=== PATIENT | male | born 1955 | race Caucasian/White ===

== ENCOUNTER → 2017-06-27 10:00 | Outpatient (CLI) | payer OTHER, SELFPAY ==
[2017-06-27 12:43] LABS: Vitamin D,25 Hydroxy 36.7 ng/mL (29.95-100.01)
[2017-06-27 13:07] LABS: Anion Gap 5 (5-15); BUN 24 mg/dL (7-18); BUN/Creat Ratio 23.1 RATIO (10-20); Calcium,Total 9.2 mg/dL (8.5-10.1); Chloride 108 mmol/L (98-107); Cholesterol 189 mg/dL (200); Creatinine, Serum 1.04 mg/dL (0.70-1.30); EST Glomerular Filtration Rate 76 mL/min (>60); Est Glom Filt Rate - Afr Amer 92 mL/min (>60); Glucose 94 mg/dL (74-106); High Density Lipoprotein 47 mg/dL; PSA,Total - Annual Screen 0.68 ng/mL (0.00-4.00); Potassium 4.4 mmol/L (3.5-5.1); Sodium Level 142 mmol/L (136-145); Thyroid Stim Hormone (TSH) 1.35 uIU/mL (0.358-3.74); Triglycerides 116 mg/dL; Very Low Density Lipoprotein 23 mg/dL (5-40)
== END ==
PROVIDERS: Family Provider Family Medicine; PCP Family Medicine; Visit Provider Family Medicine
DX: Z00.00 Encounter for general adult medical examination without abnormal findings (principal); Z12.5 Encounter for screening for malignant neoplasm of prostate
CPT/HCPCS: 36415; 80048; 80061; 82306; 84153; 84443; G0103

== ENCOUNTER → 2017-09-14 09:40 | Outpatient (CLI) | payer OTHER, SELFPAY ==
--- NOTE | 2017-09-14 09:48 | EKG12_ITS ---
Test Reason : PERSISTENT A-FIB Blood Pressure : / mmHG Vent. Rate : 083 BPM Atrial Rate : 214 BPM P-R Int : 000 ms QRS Dur : 102 ms QT Int : 390 ms P-R-T Axes : 000 021 035 degrees QTc Int : 458 ms Atrial fibrillation Abnormal ECG Confirmed by VANDANA ANTOINE MD ([id number]), editor continuity and script TANYA RAHMAN ([id number] on 09/17/2017 3:29:05 PM Referred By: RONNIE MONTERO Confirmed By:VANDANA ANTOINE MD
== END ==
PROVIDERS: Family Provider Family Medicine; PCP Family Medicine
DX: I48.1 Persistent atrial fibrillation (principal)
CPT/HCPCS: 93005

== ENCOUNTER → 2019-03-21 08:34 | Outpatient (CLI) | payer MEDICARE, OTHER, SELFPAY ==
[2016-10-10 21:18] VITALS: BMI 27.1
[2019-03-21 11:23] LABS: Anion Gap 4 (5-15); BUN 26 mg/dL (7-18); BUN/Creat Ratio 25.5 RATIO (10-20); Calcium,Total 9.4 mg/dL (8.5-10.1); Chloride 110 mmol/L (98-107); Cholesterol 190 mg/dL (200); Creatinine, Serum 1.02 mg/dL (0.70-1.30); EST Glomerular Filtration Rate 78 mL/min (>60); Est Glom Filt Rate - Afr Amer 94 mL/min (>60); Glucose 95 mg/dL (74-106); High Density Lipoprotein 45 mg/dL; Potassium 4.4 mmol/L (3.5-5.1); Sodium Level 140 mmol/L (136-145); Triglycerides 102 mg/dL; Very Low Density Lipoprotein 20 mg/dL (5-40)
== END ==
PROVIDERS: Family Provider Family Medicine; PCP Family Medicine; Referring Provider Family Medicine; Visit Provider Family Medicine
DX: Z00.00 Encounter for general adult medical examination without abnormal findings (principal); I48.91 Unspecified atrial fibrillation; Z12.5 Encounter for screening for malignant neoplasm of prostate
CPT/HCPCS: 36415; 80048; 80061; 84153; G0103

== ENCOUNTER → 2023-09-03 | Outpatient (CLI) | payer MEDICARE, OTHER, SELFPAY ==
--- NOTE | 2023-09-03 16:41 | CT_ITS ---
STUDY: LOW DOSE CT LUNG CANCER SCREENING REASON FOR EXAM: Male, 68 years old. smoking history. Former smoker. Patient smoked 1 pack per day for 26 years. RADIATION DOSAGE (If Supplied By Facility): CTDIvol = ( 3.02 ) mGy, DLP = ( 114.38 ) mGycm TECHNIQUE: No contrast was administered. Low dose technique was utilized (average mAS-38 and kVp 120). 1.25 mm axial source images with a slice interval of 1.25-mm were reconstructed in lung windows. 2.5 mm axial source images with a slice interval of 2.5-mm were reconstructed in lung windows. 5.0 mm axial source images with a slice interval of 5.0-mm were reconstructed in soft tissue windows. COMPARISON: None. NODULES: No suspicious nodules are seen. Emphysema: Increased markings are seen in the peripheral lateral aspect of the left lower lobe suggestive of a scarring. Minimal scarring in the medial aspect of the right middle lobe and lingular segment of the left upper lobe. Endobronchial lesion: Unremarkable Aorta: Mild atherosclerotic plaque formation of the aortic arch. CORONARY ARTERIES: Coronary artery calcification is seen. Heart: Unremarkable Pulmonary artery: Unremarkable Mediastinal nodes: Small mediastinal lymph nodes. Other chest and abdominal findings: CT/Low Dose CT Lung Screening IMPRESSION: Lung-RADS category 2 - Continue annual screening with LDCT in 12 months. IMPORTANT NOTES FOR USE: ACR Lung-RADS Version 1.1 Assessment Categories Release Date: 2018 Category: Coded 0-4 bases on nodule(s) with highest degree of suspicion. Negative screen is defined as categories 1 and 2; a positive screen is defined as categories 3 and 4. Category 3 and 4A nodules that are unchanged on interval CT should be coded as category 2, and individuals returned to screening in 12 months. Category 4X: Category 3 or 4 nodules with additional imaging findings that increase the suspicion of lung cancer, such as spiculation, GGN that doubles in size in 1 year, enlarged lymph notes, etc. Category Modifiers: S (significant finding unrelated to lung cancer) Electronically Signed: Shon Liang MD at 12:55 EDT ,
== END | disposition home or self-care (01) ==
LOC: CT 16:37
PROVIDERS: PCP Family Medicine; Referring Provider Family Medicine; Visit Provider Family Medicine
DX: Z12.2 Encounter for screening for malignant neoplasm of respiratory organs (principal); Z87.891 Personal history of nicotine dependence
CPT/HCPCS: 71271

== ENCOUNTER → 2024-10-14 | Outpatient (CLI) | payer MEDICARE, OTHER, SELFPAY ==
--- OUTSIDE RECORDS SUMMARY | 2024-10-14 08:44 | XMS RPT_ITS | CCD ---
Author Organization [facility] Care Team Providers Care Orthotic Practitioner Name Role Phone David Woods MD Primary Care Provider [phone] No, Referral Unavailable Unavailable Fan MAYNARD, Dewayne Unavailable DAVID MORTON Attending Unavailable DAVID WOODS Primary Care Unavailable David Woods MD Primary Care Provider No, Referral Unavailable Unavailable Fan MAYNARD, Dewayne Unavailable Dileep Abernathy MD Unavailable Dileep Abernathy MD Unavailable David Woods MD Primary Care Provider [phone] David Woods Referring Unavailable David Woods Attending Unavailable David Woods Primary Care Unavailable David Woods MD Primary Care Provider [phone] DAVID WOODS Primary Care Unavailable DILEEP ABERNATHY Referring Unavailable DAVID WOODS Primary Care Unavailable SELINA PARRISH Attending Unavailable DAVID WOODS Primary Care Unavailable NO BENJAMIN Attending Unavailable DAVID WOODS Primary Care Unavailable DAVID WOODS Primary Care Unavailable LARRY BA Referring Unavailable DAVID WOODS Primary Care Unavailable LARRY BA Attending Unavailable DAVID WOODS Primary Care Unavailable DILEEP ABERNATHY Attending Unavailable DILEEP ABERNATHY Referring Unavailable Medications Current Medications Medication Drug Class(es) Dates Sig (Normalized) Sig (Original) cephalexin 500 mg oral capsule (3 sources) Cephalosporin Antibacterial Start: 09-06-2024 End: 09-11-2024 take 1 capsule by mouth twice daily cephALEXin (KEFLEX) 500 mg capsule Take 1 capsule by mouth two times a day for 5 days. 10 capsule 09/06/2024 09/11/2024 Active fluticasone propionate 0.05 mg/actuat metered dose nasal spray (20 sources) Corticosteroid Start: 08-31-2021 take 1-2 spray(s) nasal route once daily fluticasone (FLONASE) 50 mcg/actuation nasal spray USE 1 TO 2 SPRAY(S) IN EACH NOSTRIL ONCE DAILY 08/31/2021 Active Comment on above: USE 1 TO 2 SPRAY(S) IN EACH NOSTRIL ONCE DAILY multivit-mins no.63/iron/folic (M-VIT ORAL) (20 sources) multivit-mins no.63/iron/folic (M-VIT ORAL) Take by mouth. Active multivit-mins no .63/iron/folic (M-VIT ORAL) Take by mouth. 0 Active Comment on above: Take by mouth. polyethylene glycol 3350 62645 mg powder for oral solution (1 source) Osmotic Laxative Start: 3 End: 3 polyethylene glycol 3350 17 gram/dose powder Take 17 g by mouth once daily as needed for constipation for up to 7 days. Mix in 8 ounces of water or juice. 119 g 0 01/26/2023 02/02/2023 Active Comment on above: Take 17 g by mouth o nce daily as needed for constipation for up to 7 days. Mix in 8 ounces of water or juice. rivaroxaban 20 mg oral tablet (20 sources) Factor Xa Inhibitor Start: 4 take 1 tablet by mouth once daily at dinner rivaroxaban (XARELTO) 20 mg tablet Indications: Paroxysmal atrial fibrillation (HCC) Take 1 tablet by mouth daily with dinner. 90 tablet 3 09/16/2023 Active Start: 05-23-2021 End: 09-14-2023 take 1 tablet by mouth once daily at dinner rivaroxaban (XARELTO) 20 mg tablet Indications: Paroxysmal atrial fibrillation (HCC) Take 1 tablet by mouth daily with dinner. 90 tablet 3 09/06/2022 09/14/2023 Discontinued Comment on above: Take 1 tablet by nette th daily with dinner. Completed/Discontinued Medications Medication Drug Class(es) Dates Sig (Normalized) Sig (Original) ascorbic acid 1000 mg oral tablet (20 sources) Vitamin C Start: 04-28-2016 End: 10-26-2023 Ascorbic Acid 1,000 mg tablet Take by mouth. 0 04/28/2016 10/26/2023 Discontinued (Course of therapy completed) Comment on above: Take by mouth. flecainide acetate 150 mg oral tablet (20 sources) Antiarrhythmic Start: 05-23-2021 End: 05-11-2023 take 1 tablet by mouth every twelve hours flecainide (TAMBOCOR) 150 mg tablet Indications: Atrial fibrillation, unspecified type (HCC) Take 1 tablet by mouth q 12 HR. 180 tablet 3 06/16/2022 05/11/2023 Discontinued (Course of therapy completed) Comment on above: Take 1 tablet by nette th q 12 HR. metoprolol tartrate 25 mg oral tablet (20 sources) beta-Adrenergic Leesa Start: 10-26-2022 End: 10-26-2023 take 0.5 tablet by mouth once daily metoprolol tartrate, short acting, (LOPRESSOR) 25 mg tablet Indications: Paroxysmal atrial fibrillation (HCC) Take 0.5 tablets by mouth once daily. 45 tablet 3 10/26/2022 10/26/2023 Discontinued Start: 02-20-2022 End: 10-25-2022 take 1 tablet by mouth twice daily metoprolol tartrate, short acting, (LOPRESSOR) 25 mg tablet Indications: Paroxysmal atrial fibrillation (HCC) Take 1 tablet by mouth twice daily. 45 tablet 3 02/20/2022 Active Start: 05-23-2021 End: 02-20-2022 take 1 tablet by mouth once daily metoprolol tartrate, short acting, (LOPRESSOR) 25 mg tablet Indications: Paroxysmal atrial fibrillation (HCC) Take 1/2 (one-half) tablet by mouth once daily 45 tablet 3 05/23/2021 02/20/2022 Discontinued Comment on above: Take 1/2 (one-half) tablet by mouth once daily Take 1 tablet by nette th twice daily. Take 25 mg by mouth twice daily. Take 0.5 tablets by mouth once daily. OTC NUTRITIONAL SUPPLEMENT (10 sources) End: 06-05-2022 OTC NUTRITIONAL SUPPLEMENT collagen peptides 0 06/05/2022 Discontinued (Course of therapy completed) OTC NUTRITIONAL SUPPLEMENT collagen peptides 0 Active Comment on above: collagen peptides pantoprazole 40 mg delayed release oral tablet (20 sources) Proton Pump Inhibitor Start: 3 End: 5 take 1 tablet by mouth twice daily before mealtime, then take 4 tablets by mouth in the evening pantoprazole DR (PROTONIX) 40 mg tablet Take 1 tablet by mouth two times a day before meals at 6 am and 4 pm. 180 tablet 04/27/2023 04/30/2024 Discontinued (Dosage adjustment) take 1 tablet by mouth once deepak y pantoprazole DR (PROTONIX) 20 mg tablet Take 20 mg by mouth once daily. Active Comment on above: Take 1 tablet by nette th two times a day before meals at 6 am and 4 pm. perflutren lipid microspheres 1.3 mL in NaCl (PF) 0.9% 10 mL injection (DEFINITY) (11 sources) Start: 03-28-2021 End: 06-05-2022 perflutren lipid microspheres 1.3 mL in NaCl (PF) 0.9% 10 mL injection (DEFINITY) Start: 03-28-2021 End: 06-27-2022 perflutren lipid microsphere s 1.3 mL in NaCl (PF) 0.9% 10 mL injection (DEFINITY) 125 ml sodium chloride 9 mg/ ml prefilled syringe (11 sources) Start: 03-28-2021 End: 06-27-2022 sodium chloride 0.9 % (flush ) 10 mL (BD POSIFLUSH) Problems Active Problems Problem Classification Problem Date Documented Da te Episodic/Chronic Abdominal hernia (1 source) Bilateral inguinal hernia, without obstruction or gangrene, not specified as recurrent; Translations: [Bilateral inguinal hernia without obstruction or gangrene, recurrence not specified] Onset: 01-26-2023 Episodic Garcia (2 sources) Epidermal burn of left forearm; Translations: [Burn of first degree of left forearm, initial encounter] Onset: 10-12-2024 10-12-2024 Episodic Cardiac dysrhythmias (20 sources) Atrial fibrillation; Translations: [Unspecified atrial fibrillation] Onset: 01-01-2009 01-18-2010 Chronic Other gastrointestinal disorders (1 source) Constipation, unspecified; Translations: [Constipation, unspecified constipation type] Onset: 01-26-2023 Episodic Other injuries and conditions due to external causes (2 sources) Injury of right hand; Translations: [Unspecified injury of right wrist, hand and finger(s), initial encounter] 09-06-2024 Episodic Other injuries and conditions due to external causes (1 source) Unspecified injury of right wrist, hand and finger(s), initial encounter; Translations: [Injury of right hand, initial encounter] Onset: 09-06-2024 Episodic Other screening for suspected conditions (not mental disorders or infectious disease) (1 source) Encounter for screening for malignant neoplasm of respiratory organs; Translations: [Encounter for screening for malignant neoplasm of respiratory organs] Onset: 09-21-2023 Episodic Residual codes; unclassified (1 source) Pain; Translations: [Pain, unspecified] 02-20-2023 Episodic Unclassified (20 sources) SUMMARY Onset: 03-28-2010 Past or Other Problems Problem Classification Problem Date Documented Da te Episodic/Chronic Acquired foot deformities (20 sources) Acquired hallux limitus of right great toe; Translations: [Other deformities of toe(s) (acquired), right foot] Onset: 03-29-2023 02-20-2023 Episodic Other aftercare (20 sources) Long-term current use of anticoagulant; Translations: [extermination supervisor (current) use of anticoagulants] Onset: 03-28-2010 05-11-2023 Episodic Other aftercare (2 sources) extermination supervisor (current) use of anticoagulants; Translations: [Chronic anticoagulation] Onset: 03-07-2021 Episodic Other and unspecified benign neoplasm (20 sources) Neuroma; Translations: [Benign neoplasm of peripheral nerves and autonomic nervous system, unspecified] Onset: 03-29-2023 02-20-2023 Episodic Other connective tissue disease (20 sources) Diastasis of muscle; Translations: [Separation of muscle (nontraumatic), unspecified site] Onset: 01-25-2008 01-25-2008 Episodic Other non-traumatic joint disorders (20 sources) Disorder of joint of foot; Translations: [Other specified joint disorders, right ankle and foot] Onset: 03-29-2023 02-20-2023 Episodic Unclassified (2 sources) Injury of right hand 09-06-2024 Results Test Name Value Interpretation Reference Range Facility [facility] 10-12-2024 CNOV Office Visit (WOUCA) -------- TONYA ROOT ([id number]) 1955 M Date Time Provider Department 10/12/24 1:30 PM NO BENJAMIN During your visit today, we recorded the following information about you: Temperature Pulse Respiration Blood pressure 97.2 degrees 62/minute 16/minute 110/72 Weight 79.5 kg No Benjamin, PORTAL DEVELOPER.SUPPLY REQUIREMENTS OFFICER 10/12/2024 1:49 PM Signed Subjective Tonya Root is a 69 year old male. HPI Patient presents today for evaluation of a burn to the palmar aspect of his left forearm which happened today while working on his vehicle. He notes that some sort of hot fluid came out of the cart landing on his forearm creating the burn. He otherwise denies any other injuries or health concerns. Review of Systems As above Objective BP 110/72 Pulse 62 Temp 36.2 ?C (97.2 ?F) Resp 16 Wt 79.5 kg (175 lb 4.3 oz) SpO2 97% BMI 25.88 kg/m? Physical Exam Vitals and nursing note reviewed. Constitutional: General: He is not in acute distress. Appearance: Normal appearance. He is not ill-appearing. HENT: Head: Normocephalic. Pulmonary: Effort: Pulmonary effort is normal. Musculoskeletal: General: Normal range of motion. Skin: General: Skin is warm. Comments: Palmar aspect left forearm extending from wrist to just below the antecubital fossa and approximately one half of the circumference of the forearm there is an erythematous area consistent with a superficial burn. No blistering noted. No streaking noted Neurological: General: No focal deficit present. Mental Status: He is alert and oriented to person, place, and time. Psychiatric: Mood and Affect: Mood normal. Behavior: Behavior normal. ASSESSMENT/PLAN: 1. Superficial burn of left forearm, initial encounter - ICD9: 943.11, ICD10: T22.112A - At this point there are no blisters and patient's presentation is consistent with a superficial burn. Burn is not circumferential. Patient's tetanus shot is up-to-date. Discussed with him basic burn care including cool compresses and using antibiotic ointment if at any point you were to develop any blistering. Recommended follow-up with PCP for continued evaluation and monitoring. Due to patient taking Eliquis he will use Tylenol as needed for pain. No Benjamin APRN.MOE Allergies As of Date: 10/12/2024 (No Known Allergies) Date Reviewed: 10/12/2024 Reviewed by: No Benjamin APRN.SUPPLY REQUIREMENTS OFFICER - Fully Assessed Reason for Visit: Burn [1748] Cmt: left arm, working on car, hot water x today Primary Visit Diagnosis:Superficial burn of left forearm, initial encounter [T22.112A] Prescriptions as of 10/12/2024 - pantoprazole DR (PROTONIX) 20 mg tablet Take 20 mg by mouth once daily. - rivaroxaban (XARELTO) 20 mg tablet Take 1 tablet by mouth daily with dinner. - fluticasone (FLONASE) 50 mcg/actuation nasal spray USE 1 TO 2 SPRAY(S) IN EACH NOSTRIL ONCE DAILY - multivit-mins no.63/iron/folic (M-VIT ORAL) Take by mouth. 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] 03/29/2023 Encounter Status:Closed by NO BENJAMIN on 10/12/24 [facility] CNOVon 09-06-2024 CNOV Office Visit (UCWSTR ) -------- TONYA ROOT ([id number]) 1955 M Date Time Provider Department 09/06/24 8:15 AM LARRY BA UCWSTR During your visit today, we recorded the following information about you: Temperature Pulse Respiration Blood pressure 97.7 degrees 60/minute 19/minute 122/64 Weight 78.5 kg Larry Ba APRN.SUPPLY REQUIREMENTS OFFICER 09/08/2024 7:09 AM Signed Subjective HPI Nontoxic-appearing 69-year-old male presents urgent care accompanied by significant other. Chief complaint left thumb injury. Patient states slammed finger in car door yesterday. Is having pain with this. Does have some bleeding under nail. Is on Eliquis due to A-fib. Had ablation in 2022. Has been in rhythm since. No numbness no tingling. No decrease sensation. No decreased strength. Has taken acetaminophen. This has helped with discomfort. No other concerns. Past medical history prescription medications allergies reviewed. [id number]. No surgeries fractures previously .Patient presents with: Trauma: Slammed right hand thumb in car door x 1 day PAST MEDICAL HISTORY Diagnosis Date Anxiety state, unspecified Atrial fibrillation (HCC) 01/01/2009 Atrial flutter (HCC) Diverticulosis of colon (without mention of hemorrhage) Osteoarthrosis, unspecified whether generalized or localized, lower leg Other forms of migraine, without mention of intractable migraine without mention of status migrainosus Personal history of colonic polyps Shingles PAST SURGICAL HISTORY Procedure Laterality Date AFIB PVI W/COMPL EP STUDY 2010 CARDIOVERSION multiple, last 04/09/18 PAST SURGICAL HISTORY OF 2007 Aflutter RFA CTI line PAST SURGICAL HISTORY OF 03/2007 foot surgery PT [facility] 01/23/2023 ablation ALLERGIES Patient has no known allergies. MEDICATIONS pantoprazole DR (PROTONIX) 20 mg tablet Take 20 mg by mouth once daily. rivaroxaban (XARELTO) 20 mg tablet Take 1 tablet by mouth daily with dinner. fluticasone (FLONASE) 50 mcg/actuation nasal spray USE 1 TO 2 SPRAY(S) IN EACH NOSTRIL ONCE DAILY multivit-mins no.63/iron/folic (M-VIT ORAL) Take by mouth. FAMILY HISTORY Problem Relation Age of Onset Stroke Mother d. age 70 Emphysema Father d age 68 None Sister Heart Brother d. age 46; SCD other (Other) Brother MS Blood Disease Son d. age 4; Leukemia Social History Tobacco Use Smoking status: Former Current packs/day: 0.00 Types: Cigarettes Quit date: 02/12/1998 Years since quittin.5 Smokeless tobacco: Never Tobacco comments: Quit @ 10 years ago Vaping Use Vaping status: Never Used Substance Use Topics Alcohol use: No Drug use: No BP 122/64 Pulse 60 Temp 36.5 ?C (97.7 ?F) Resp 19 Wt 78.5 kg (173 lb 1 oz) SpO2 97% BMI 25.56 kg/m? Review of Systems Constitutional: Negative for chills, fever and malaise/fatigue. Musculoskeletal: Positive for joint pain. Negative for back pain, falls, myalgias and neck pain. Neurological: Negative for dizziness, loss of consciousness, weakness and headaches. Objective Physical Exam Constitutional: General: He is not in acute distress. Appearance: He is not toxic-appearing. HENT: Head: Normocephalic. Nose: Nose normal. Eyes: Pupils: Pupils are equal, round, and reactive to light. Cardiovascular: Rate and Rhythm: Normal rate. Pulmonary: Effort: Pulmonary effort is normal. No respiratory distress. Musculoskeletal: Cervical back: Normal range of motion. Comments: Pain with palpation to distal aspect of thumb right hand. Ecchymosis noted to palmar aspect as well as hematoma neck noted dorsal aspect. Neurovascular intact. Full strength. Skin: General: Skin is warm and dry. Neurological: General: No focal deficit present. Mental Status: He is alert. ASSESSMENT/PLAN: 1. Injury of right hand, initial encounter - ICD9: 959.4, ICD10: S69.91XA - XR DIGIT GENERAL 3V FRONTAL/LAT/OBL RIGHT IMPRESSION: Negative for acute fracture or malalignment of the right thumb. No acute findings on x-ray. Treat as contusion. Patient was educated on supportive therapies. Patient will follow up with primary care provider as needed. Patient was instructed to immediately proceed to emergency room for any new, worsening, or symptoms lasting longer than anticipated. The patient's clinical presentation is otherwise unremarkable at this time. Based on exam and clinical finding, the patient is stable for discharge. Plan of care was discussed with patient. Patient verbalizes understanding and agrees to plan of care. This note was generated using [employer] software. It may contain errors in wording, punctuation, or spelling. Larry aB APRN.SUPPLY REQUIREMENTS OFFICER Allergies As of Date: 09/06/2024 (No Known Allergies) Date Reviewed: 09/06/2024 Reviewed by: Larry Ba APRN.SUPPLY REQUIREMENTS OFFICER - Fully Assessed Reason fo (more content not included)... Normal [facility] XR DIGIT 3V FRONTAL/LAT/OBL RTon 09-06-2024 XR DIGIT 3V FRONTAL/LAT/OBL RT * * *Final Report* * * DATE OF EXAM: Sep 06 2024 8:33AM WOX [id number] - XR DIGIT 3V FRONTAL/LAT/OBL RT / PROCEDURE REASON: Injury of right hand, initial encounter * * * * Physician Interpretation * * * * EXAM: XR DIGIT 3V FRONTAL/LAT/OBL RT PATIENT HISTORY: Injury of right thumb TECHNIQUE: Frontal, lateral, and oblique radiograph of the right thumb. COMPARISON: No relevant prior available FINDINGS: No acute fracture or dislocation. Severe osteoarthrosis of the first carpometacarpal joint. No significant soft tissue edema, defect, radiopaque foreign body. IMPRESSION: Negative for acute fracture or malalignment of the right thumb. Hook Tender: ROSENDO Transcribe Date/Time: Sep 06 2024 9:17A Dictated by : KITA BYERS MD This examination was interpreted and the report reviewed and electronically signed by: KITA BYERS MD on Sep 06 2024 9:19AM EST [id number] Normal [facility] XR Finger - right AP and Lat eral and obliqueon 09-06-2024 IMPRESSION: Negative for acute fracture or malalignment of the right thumb. Hook Tender: ROSENDO Transcribe Date/Time: Sep 06 2024 9:17A Dictated by : KITA BYERS MD This examination was interpreted and the report reviewed and electronically signed by: KITA BYERS MD on Sep 06 2024 9:19AM EST DIVISION OF RADIOLOGY * * *Final Report* * * DATE OF EXAM: Sep 06 2024 8:33AM WOX [id number] - XR DIGIT 3V FRONTAL/LAT/OBL RT / PROCEDURE REASON: Injury of right hand, initial encounter * * * * Physician Interpretation * * * * EXAM: XR DIGIT 3V FRONTAL/LAT/OBL RT PATIENT HISTORY: Injury of right thumb TECHNIQUE: Frontal, lateral, and oblique radiograph of the right thumb. COMPARISON: No relevant prior available FINDINGS: No acute fracture or dislocation. Severe osteoarthrosis of the first carpometacarpal joint. No significant soft tissue edema, defect, radiopaque foreign body. DIVISION OF RADIOLOGY Provider, [facility] - 09/06/2024 * * *Final Report* * * DATE OF EXAM: Sep 06 2024 8:33AM WOX [id number] - XR DIGIT 3V FRONTAL/LAT/OBL RT / PROCEDURE REASON: Injury of right hand, initial encounter * * * * Physician Interpretation * * * * EXAM: XR DIGIT 3V FRONTAL/LAT/OBL RT PATIENT HISTORY: Injury of right thumb TECHNIQUE: Frontal, lateral, and oblique radiograph of the right thumb. COMPARISON: No relevant prior available FINDINGS: No acute fracture or dislocation. Severe osteoarthrosis of the first carpometacarpal joint. No significant soft tissue edema, defect, radiopaque foreign body. IMPRESSION IMPRESSION: Negative for acute fracture or malalignment of the right thumb. Hook Tender: PSCB Transcribe Date/Time: Sep 06 2024 9:17A Dictated by : KITA BYERS MD This examination was interpreted and the report reviewed and electronically signed by: KITA BYERS MD on Sep 06 2024 9:19AM EST [facility] Study observation (narrative) [facility] XR Finger - right AP and Lat eral and obliqueOrdered By: [facility] Provider on 09-06-2024 [facility] 06-03-2024 CNPN Telephone (CARDMN) -------- TONYA ROOT ([id number]) 1955 M Date Time Provider Department 06/03/24 DILEEP ABERNATHY During your visit today, we recorded the following information about you: Louisa Marshall 06/03/2024 12:23 PM Signed Outside [id number] I have a copy @ my desk Louisa Marshall Allergies As of Date: 06/03/2024 (No Known Allergies) Date Reviewed: 05/11/2023 Reviewed by: Rosa Isela Martin APRN.SUPPLY REQUIREMENTS OFFICER - Fully Assessed Reason for Visit: Received Outside Medical Records [3576] Cmt: Redetermination Of Denial- Xarelto Prescriptions as of 06/03/2024 - pantoprazole DR (PROTONIX) 20 mg tablet Take 20 mg by mouth once daily. - rivaroxaban (XARELTO) 20 mg tablet Take 1 tablet by mouth daily with dinner. - fluticasone (FLONASE) 50 mcg/actuation nasal spray USE 1 TO 2 SPRAY(S) IN EACH NOSTRIL ONCE DAILY - multivit-mins no.63/iron/folic (M-VIT ORAL) Take by mouth. 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 Allergies As of Date: 05/30/2024 (No Known Allergies) Date Reviewed: 05/11/2023 Reviewed by: Rosa Isela Martin APRN.SUPPLY REQUIREMENTS OFFICER - Fully Assessed Reason for Visit: Prior Authorization _ Request for Additional Information [Other] Cmt: Xarelto Prescriptions as of 07/09/2024 - pantoprazole DR (PROTONIX) 20 mg tablet Take 20 mg by mouth once daily. - rivaroxaban (XARELTO) 20 mg tablet Take 1 tablet by mouth daily with dinner. - fluticasone (FLONASE) 50 mcg/actuation nasal spray USE 1 TO 2 SPRAY(S) IN EACH NOSTRIL ONCE DAILY - multivit-mins no.63/iron/folic (M-VIT ORAL) Take by mouth. 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] 03/29/2023 Encounter Status:Closed by ASHLEY WEAVER on 07/09/24 [facility] CNPCiera 05-21-2024 MOEN Telephone (TALA) -------- TONYA ROOT ([id number]) 1955 Date Time Provider Department 05/21/24 DILEEP ABERNATHY During your visit today, we recorded the following information about you: Louisa Marshall 05/21/2024 8:11 AM Signed Outside ep-8-pgs I have a copy @ my desk John Ocasioavia 06/02/2024 11:09 AM Signed Form completed, faxed AND scanned into outside ep Louisa Marshall Allergies As of Date: 05/21/2024 (No Known Allergies) Date Reviewed: 05/11/2023 Reviewed by: Rosa Isela Martin APRN.SUPPLY REQUIREMENTS OFFICER - Fully Assessed Reason for Visit: Received Outside Medical Records [3576] Cmt: Damaris Prior Auth Prescriptions as of 06/02/2024 - pantoprazole DR (PROTONIX) 20 mg tablet Take 20 mg by mouth once daily. - rivaroxaban (XARELTO) 20 mg tablet Take 1 tablet by mouth daily with dinner. - fluticasone (FLONASE) 50 mcg/actuation nasal spray USE 1 TO 2 SPRAY(S) IN EACH NOSTRIL ONCE DAILY - multivit-mins no.63/iron/folic (M-VIT ORAL) Take by mouth. 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] 03/29/2023 Encounter Status:Closed by LOUISA MARSHALL on 05/21/24 [facility] CNOVon 04-30-2024 CNOV Office Visit (CARDMN ) -------- TONYA ROOT ([id number]) 1955 M Date Time Provider Department 04/30/24 9:15 AM DILEEP ABERNATHY During your visit today, we recorded the following information about you: Blood pressure Weight Height 118/68 77.6 kg 1.753 m Dileep Aberntahy MD 05/01/2024 11:30 AM Signed [facility] [place] [facility]ta Ingram Department of Cardiovascular Medicine SECTION OF CARDIAC PACING and ELECTROPHYSIOLOGY OUTPATIENT VISIT DATE April 30, 2024 OUTPATIENT VISIT TYPE ESTABLISHED PRIMARY CARE PHYSICIAN: David Woods [address] [place] [address] NURSING INTAKE HISTORY: Mr. Root is a 69 year old male who presents today for a follow-up visit for atrial fibrillation. He has a past medical history of atrial fibrillation/flutter with a CTI ablation in 2007, pulmonary vein isolation in 2010, multiple DCCV. He was previously maintained on Flecainide and Metoprolol until 2020 when he developed AFL and required several cardioversions. He developed persistent AFL in associated with dyspnea and fatigue. He had a redo AF/AFL ablation 01/23/2023. His Flecainide was stopped in May 2023. He has done well since his last ablation without any known recurrence of his arrhythmia. He remains on Xarelto without any significant bleeding issues. Overall he is feeling well. CHADS2-Vasc Score Breakdown 1 Total Score 1 Age 65-74 years old PAST MEDICAL HISTORY Diagnosis Date Anxiety state, unspecified Atrial fibrillation (HCC) 01/01/2009 Atrial flutter (HCC) Diverticulosis of colon (without mention of hemorrhage) Osteoarthrosis, unspecified whether generalized or localized, lower leg Other forms of migraine, without mention of intractable migraine without mention of status migrainosus Personal history of colonic polyps Shingles PAST SURGICAL HISTORY Procedure Laterality Date AFIB PVI W/COMPL EP STUDY 2010 CARDIOVERSION multiple, last 04/09/18 PAST SURGICAL HISTORY OF 2007 Aflutter RFA CTI line PAST SURGICAL HISTORY OF 03/2007 foot surgery PT ED HEART AND VASCULAR 01/23/2023 ablation SOCIAL HISTORY Social History Tobacco Use Smoking status: Former Current packs/day: 0.00 Types: Cigarettes Quit date: 02/12/1998 Years since quittin.2 Smokeless tobacco: Never Tobacco comments: Quit @ 10 years ago Vaping Use Vaping status: Never Used Substance Use Topics Alcohol use: No Drug use: No FAMILY HISTORY Problem Relation Age of Onset Stroke Mother d. age 70 Emphysema Father d age 68 None Sister Heart Brother d. age 46; SCD other (Other) Brother MS Blood Disease Son d. age 4; Leukemia ALLERGIES: ALLERGIES No Known Allergies MEDICATIONS: pantoprazole DR (PROTONIX) 20 mg tablet Take 20 mg by mouth once daily. rivaroxaban (XARELTO) 20 mg tablet Take 1 tablet by mouth daily with dinner. fluticasone (FLONASE) 50 mcg/actuation nasal spray USE 1 TO 2 SPRAY(S) IN EACH NOSTRIL ONCE DAILY multivit-mins no.63/iron/folic (M-VIT ORAL) Take by mouth. Iwona Wise RN PHYSICAL EXAMINATION: BP 118/68 Ht 175.3 cm (5' 9) Wt 77.6 kg (171 lb) BMI 25.25 kg/m? CARDIOVASCULAR MEDICINE TESTING: EKG today: Echo: 05/11/2023 CONCLUSIONS: - Exam indication: Sustained atrial fibrillation - The left ventricle is normal in size. Left ventricular systolic function is normal. EF = 59 ? 5% (2D biplane) Normal left ventricular diastolic function. - The right ventricle is normal in size. Right ventricular systolic function is normal. - The right atrial cavity is dilated. - 1+ MR. - Patient had frequent ectopy throughout exam. - Exam was compared with the prior echocardiographic exam performed on 09/20/2021. Interval improvement in LVEF on direct comparison. EP STAFF NOTE: Please note: This note has been produced using speech recognition software and may contain errors related to that system including grammar, punctuation, spelling, gender and words and phrases that may be inappropriate Consultation initially requested by Dr. Chavira for an opinion regarding management of AF I have reviewed the above information and examined the patient and confirm the above with the following additions/modifications. Post DCC : PE: Vitals: BP 118/68 Ht 175.3 cm (5' 9) Wt 77.6 kg (171 lb) BMI 25.25 kg/m? General: Appears well nourished. In no acute distress. Lungs: Unlabored Heart: RRR Extremities: No peripheral edema bilaterally. PROBLEM LIST: patient of Dr. Chavira who was last seen on 11/04/2019 by Rea Hernandez CNP. HTN atrial fibrillation/flutter with a CTI ablation in 2007 pulmonary vein isolation in 2010, cardioversion on 11/04/2019. , . Patient has been on a rhythm controlling strategy with f (more content not included)... Normal [facility] ECG COMPLETEon 04-30-2024 ECG COMPLETE Ventricular Rate : 5 4 BPM Atrial Rate : 54 BPM P-R Interval : 160 ms QRS Duration : 78 ms Q-T Interval : 412 ms QTC Calculation(Bazett) : 390 ms Calculated P [place] : 39 degrees Calculated R [place] : 47 degrees Calculated T [place] : 44 degrees SINUS BRADYCARDIA OTHERWISE NORMAL ECG Confirmed by DAVE NY MD ([id number]) on 05/22/2024 8:23:38 PM NAME : TONYA ROOT PID : [id number] : 1955 Gender : Male Race : ORD : [id number] Procedure Date : Apr 30 2024 08:32:44 Edit Date : May 22 2024 20:23:41 Diagnosis: SINUS BRADYCARDIA OTHERWISE NORMAL ECG Confirmed by DAVE NY MD ([id number]) on 05/22/2024 8:23:38 PM Test Reason : Location : 314 : J14 J1-4 Overread By : DAVE NY MD Edited By : DAVE NY MD Referred By : DILEEP ABERNATHY Acquired by : TIFFANIE WESTFALL Normal [facility] CNOVon 10-26-2023 CNOV Office Visit (CARDMN ) -------- TONYA ROOT ([id number]) 1955 M Date Time Provider Department 10/26/23 1:00 PM SELINA PARRISH CARDMN During your visit today, we recorded the following information about you: Blood pressure Weight Height 136/78 78.8 kg 1.753 m Selina Parrish APRN.SUPPLY REQUIREMENTS OFFICER 10/26/2023 2:24 PM Signed [facility] [place] [facility] Ingram Department of Cardiovascular Medicine SECTION OF CARDIAC PACING and ELECTROPHYSIOLOGY OUTPATIENT VISIT DATE October 26, 2023 OUTPATIENT VISIT TYPE ESTABLISHED PRIMARY CARE PHYSICIAN: David Woods [address] [place] [address] [address] [place] [address] REFERRING PHYSICIAN: Dileep Abernathy [address] [facility] [address] CHIEF COMPLAINT: Atrial fibrillation HISTORY OF PRESENT ILLNESS: Mr. Root is a 68 year old male who presents today for follow-up visit for atrial fibrillation. He is an established patient of Dr. Abernathy last seen by Pardeep Martin on 05/11/2023. He has a past medical history of atrial fibrillation/flutter with a CTI ablation in 2007, pulmonary vein isolation in 2010, multiple DCCV. He was previously maintained on Flecainide and Metoprolol until 2020 when he developed AFL and required several cardioversions. He developed persistent AFL in associated with dyspnea and fatigue. He had a redo AF/AFL ablation with Dr. Abernathy on 01/23/2023. He continues to do well since his last visit without recurrences of atrial arrhythmias. He no longer taking Flecainide or Metoprolol. 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 He denies chest pain, shortness of breath, orthopnea, cough, edema, palpitations, PND, lightheadedness or syncope. PAST CARDIAC HISTORY: PAST MEDICAL HISTORY No date: Anxiety state, unspecified 01/01/2009: Atrial fibrillation (HCC) No date: Atrial flutter (HCC) No date: Diverticulosis of colon (without mention of hemorrhage) No date: Osteoarthrosis, unspecified whether generalized or localized, lower leg No date: Other forms of migraine, without mention of intractable migraine without mention of status migrainosus No date: Personal history of colonic polyps No date: ShinglesPAST SURGICAL HISTORY 2011: AFIB PVI W/COMPL EP STUDY No date: CARDIOVERSION Comment: multiple, last 04/09/182007: PAST SURGICAL HISTORY OF Comment: Aflutter RFA CTI line 03/2007: PAST SURGICAL HISTORY OF Comment: foot surgery 01/23/2023: PT ED HEART AND VASCULAR Comment: ablation SOCIAL HISTORY Social History Tobacco Use Smoking status: Former Types: Cigarettes Quit date: 02/12/1998 Years since quittin.7 Smokeless tobacco: Never Tobacco comments: Quit @ 10 years ago Vaping Use Vaping Use: Never used Substance Use Topics Alcohol use: No Drug use: No FAMILY HISTORY Problem Relation Age of Onset Stroke Mother d. age 70 Emphysema Father d age 68 None Sister Heart Brother d. age 46; SCD other (Other) Brother MS Blood Disease Son d. age 4; Leukemia ALLERGIES: ALLERGIES No Known Allergies MEDICATIONS: rivaroxaban (XARELTO) 20 mg tablet Take 1 tablet by mouth daily with dinner. pantoprazole DR (PROTONIX) 40 mg tablet Take 1 tablet by mouth two times a day before meals at 6 am and 4 pm. metoprolol tartrate, short acting, (LOPRESSOR) 25 mg tablet Take 0.5 tablets by mouth once daily. fluticasone (FLONASE) 50 mcg/actuation nasal spray USE 1 TO 2 SPRAY(S) IN EACH NOSTRIL ONCE DAILY Ascorbic Acid 1,000 mg tablet Take by mouth. multivit-mins no.63/iron/folic (M-VIT ORAL) Take by mouth. REVIEW OF SYSTEMS: GENERAL: No weight loss, malaise or fevers RESPIRATORY: See HPI CARDIOVASCULAR: See HPI GI: No nausea, vomiting, or diarrhea MUSCULOSKELETAL: Negative for joint pain or swelling, back pain or muscle pain SKIN: Negative for lesions, rash, and itching PSYCH: Calm and cooperative. PHYSICAL EXAMINATION: There were no vitals taken for this visit. General Appearance: Well developed, well nourished, and No acute distress Lungs: CTAB; No crackles, rales, rhonchi or wheezes; Respiratory effort: normal Heart: Regular rate AND rhythm; No murmur: S1, S2; Edema: None; PT/Radial pulses: 2+ Skin: Warm, Dry, and Moist Musculoskeletal: No deformities; Steady gait Neurologic/Psychiatric: Oriented to time, place, person AND situation;No gross focal neurologic deficits Groin: Device pocket: CARDIOVASCULAR MEDICINE TESTING: Last ECHO Result Conclusion ECHO Collected: 05/11/2023 2:08 PM (Final result) Impression: CONCLUSIONS: - Exam indication: Sustained atrial fibrillation - The left ventricle is normal in size. Left ventricular systolic function is normal. EF = 59 ? 5% (2D biplane) Normal left ventricular diastolic function. - The right ventricle is normal (more content not included)... Normal [facility] ECG COMPLETEon 10-26-2023 ECG COMPLETE Ventricular Rate : 4 5 BPM Atrial Rate : 45 BPM P-R Interval : 156 ms QRS Duration : 82 ms Q-T Interval : 454 ms QTC Calculation(Bazett) : 392 ms Calculated P [place] : 36 degrees Calculated R [place] : 46 degrees Calculated T [place] : 51 degrees SINUS BRADYCARDIA OTHERWISE NORMAL ECG Confirmed by DAVE YN MD ([id number]) on 11/30/2023 8:34:35 AM NAME : TONYA ROOT PID : [id number] : 1955 Gender : Male Race : ORD : [id number] Procedure Date : Oct 26 2023 12:18:28 Edit Date : Nov 30 2023 08:34:39 Diagnosis: SINUS BRADYCARDIA OTHERWISE NORMAL ECG Confirmed by DAVE NY MD ([id number]) on 11/30/2023 8:34:35 AM Test Reason : Location : 314 : J14 J1-4 Overread By : DAVE NY MD Edited By : DAVE NY MD Referred By : , Acquired by : RADHA PETERS [facility] Low Dose CT Lung Screeningon 09-03-[address] Lung Screening [facility] Imaging Services [address] [place] [id number] Lung Screening MR#: [id number] Acct: [id number] Name: TONYA ROOT Rep #: [id number] : 1955 M 68 From: Shon hardin MD PCP: Dr. David Woods MD Status: [facility] Study: Low Dose CT Lung Screening Date of Exam: 09/02 Exam# [id number] Ordering Dr: David Woods MD [id number] STUDY: LOW DOSE CT LUNG CANCER SCREENING REASON FOR EXAM: Male, 68 years old. smoking history. Former smoker. Patient smoked 1 pack per day for 26 years. RADIATION DOSAGE (If Supplied By Facility): CTDIvol = ( 3.02 ) mGy, DLP = ( 114.38 ) mGycm TECHNIQUE: No contrast was administered. Low dose technique was utilized (average mAS-38 and kVp 120). 1.25 mm axial source images with a slice interval of 1.25-mm were reconstructed in lung windows. 2.5 mm axial source images with a slice interval of 2.5-mm were reconstructed in lung windows. 5.0 mm axial source images with a slice interval of 5.0-mm were reconstructed in soft tissue windows. COMPARISON: None. NODULES: No suspicious nodules are seen. Emphysema: Increased markings are seen in the peripheral lateral aspect of the left lower lobe suggestive of a scarring. Minimal scarring in the medial aspect of the right middle lobe and lingular segment of the left upper lobe. Endobronchial lesion: Unremarkable Aorta: Mild atherosclerotic plaque formation of the aortic arch. CORONARY ARTERIES: Coronary artery calcification is seen. Heart: Unremarkable Pulmonary artery: Unremarkable Mediastinal nodes: Small mediastinal lymph nodes. Other chest and abdominal findings: CT/Low Dose CT Lung Screening IMPRESSION: Lung-RADS category 2 - Continue annual screening with LDCT in 12 months. IMPORTANT NOTES FOR USE: ACR Lung-RADS Version 1.1 Assessment Categories Release Date: 2018 Category: Coded 0-4 bases on nodule(s) with highest degree of suspicion. Negative screen is defined as categories 1 and 2; a positive screen is defined as categories 3 and 4. Category 3 and 4A nodules that are unchanged on interval CT should be coded as category 2, and individuals returned to screening in 12 months. Category 4X: Category 3 or 4 nodules with additional imaging findings that increase the suspicion of lung cancer, such as spiculation, GGN that doubles in size in 1 year, enlarged lymph notes, etc. Category Modifiers: S (significant finding unrelated to lung cancer) Electronically Signed: Shon Liang MD at 12:55 EDT , CC: Dr. David Woods MD Hook Tender: Signed Normal [facility] ARRHYTHMIA TRANS TELE MEASUR Edgar 04-26-2023 Measure IA Interval [address] [facility] MEASURE QRS Interval 87 [facility] MEASURE QT Interval 432 [facility] MEASURE RR INTERVAL MAX 51.59 [facility] Symptoms Routine [facility] ARRHYTHMIA TRANS TELE MEASUR Edgar 04-20-2023 ARRHYTH-MEASURE QRS INTERVAL MIN 87 [facility] ARRHYTH-MEASURE QT INTERVAL MIN 467 [facility] Arrhyth-Measure RR Interval Min 48.38 [facility] ARRHYTH-MEASUREPRIN TERVALMIN 158 [facility] Symptoms routine [facility] ARRHYTHMIA TRANS TELE MEASUR Edgar 02-27-2023 Measure IA Interval [address] [facility] MEASURE QRS Interval 60 [facility] MEASURE QT Interval 450 [facility] MEASURE RR INTERVAL MAX 57.93 [facility] Symptoms routine [facility] ARRHYTHMIA TRANS TELE MEASUR Edgar 02-15-2023 Measure IA Interval [address] [facility] MEASURE QRS Interval 91 [facility] MEASURE QT Interval 467 [facility] MEASURE RR INTERVAL MAX 52.49 [facility] Symptoms routine- [facility] TRANS TELE MEASUR Edgar 02-02-2023 Measure IA Interval [address] [facility] MEASURE QRS Interval 60 [facility] MEASURE QT Interval 449 [facility] MEASURE RR INTERVAL MAX 51.59 [facility] Symptoms Routine [facility] ED NOTEon 01-27-2023 ED NOTE HNO ID: [id number] Author: Sheila Olea RN Service: ? Author Type: Registered Nurse Type: ED Notes Filed: 01/26/2023 10:31 PM Note Text: Pt verbalized discharge instructions and the need to follow up Normal [facility] HEALTHon 01-26-2023 ALLIED HEALTH HNO ID: [id number] Author: Chema Gibbs RT(R) Service: Radiology Author Type: Technologist Type: Allied Health Filed: 01/26/2023 9:30 PM Note Text: Radiology Service Progress Note DATE OF SERVICE: January 26, 2023 TIME: 9:29 PM PATIENT IDENTITY VERIFICATION COMPLETED USING TWO (2) STANDARD IDENTIFIERS: Name and Date of confirmed by patient verbally and Name and Date of confirmed by identification band. FALL SCREENING: Has the patient had 2 falls in the last year or 1 fall with injury or currently using an Ambulatory Assistive Device (Walker, Cane, Wheelchair, Crutches, etc.)? Emergency Room Patient: Screened in ED PATIENT GENDER DATA: Male PATIENT RELEVANT IMPLANT DATA REVIEWED: Not Applicable ALLERGIES: Reviewed and unchanged CONTRAST ALLERGY: NO. EXAM: CT -CONTRAST INDUCED NEPHROPATHY RISK FACTORS: Patient age > 60 years CREATININE: Creatinine Date Value Ref Range Status 01/26/2023 0.94 0.73 - 1.22 mg/dL Final 01/22/2023 0.96 0.73 - 1.22 mg/dL Final 10/07/2021 0.93 0.73 - 1.22 mg/dL Final Estimated Glomerular Filtration Rate Date Value Ref Range Status 01/26/2023 88 >=60 mL/min/1.73m? Final Comment: Estimated Glomerular Filtration Rate (eGFR) is calculated using the 2020 CKD-EPI creatinine equation. This equation utilizes serum creatinine, sex, and age as parameters. The creatinine assay has traceable calibration to isotope dilution-mass spectrometry. Refer to KDIGO guidelines for clinical interpretation. In patients with unstable renal function, e.g. those with acute kidney injury, the eGFR may not accurately reflect actual GFR. eGFR- Date Value Ref Range Status 02/23/2021 >60 Final P.O.C.T. RESULTS: POC done: Yes, See Lab Tab January 26, 2023 TREATMENT: N/A PERIPHERAL IV DATA: Inpatient - refer to LDA documentation RADIOLOGY DEPARTMENT: CT; Exam(s) Completed: Abdomen/Pelvis SIGNATURE: RT Amanda(R) PATIENT NAME: Tonya Root DATE: January 26, 2023 TIME: 9:29 PM [facility] CBC W Auto Differential pane l (Bld)on 01-26-2023 Basophils (Bld) [#/Vol] 0.05 10*3/uL Normal <0.11 [facility] Comment on above: Order Comment: Speci men Type: BLOOD SPECIMEN Ordering Facility: [facility] Address: [address] [place] [address] Performed By: #### 5 7021-8 #### [facility] CLIA [id number] [address] [place] [address] [place] Basophils/100 WBC (Bld) 0.4 % Normal [facility] Comment on above: Order Comment: Speci men Type: BLOOD SPECIMEN Ordering Facility: [facility] Address: [address] [place] [address] Performed By: #### 5 7021-8 #### [facility] CLIA [id number] [address] Differential cell count method Nom (Bld) Auto Normal [facility] Comment on above: Order Comment: Speci men Type: BLOOD SPECIMEN Ordering Facility: [facility] Address: [address] [place] [address] Performed By: #### 5 7021-8 #### [facility] CLIA [id number] [address] [place] [address] [place] Eosinophils (Bld) [#/Vol] 0.18 10*3/uL Normal <0.46 [facility] Comment on above: Order Comment: Speci men Type: BLOOD SPECIMEN Ordering Facility: [facility] Address: [address] [place] [address] Performed By: #### 5 7021-8 #### [facility] CLIA [id number] [address] [place] Eosinophils/100 WBC (Bld) 1.6 % Normal [facility] Comment on above: Order Comment: Speci men Type: BLOOD SPECIMEN Ordering Facility: [facility] Address: [address] [place] [address] Performed By: #### 5 7021-8 #### [facility] CLIA [id number] [address] [place] Erythrocyte distribution width (RBC) [Ratio] 13.2 % Normal 11.5-15.0 [facility] Comment on above: Order Comment: Speci men Type: BLOOD SPECIMEN Ordering Facility: [facility] Address: [address] [place] [address] Performed By: #### 5 7021-8 #### [facility] CLIA [id number] [address] [place] Hematocrit (Bld) [Volume fraction] 40.4 % Normal 39.0-51.0 [facility] Comment on above: Order Comment: Speci men Type: BLOOD SPECIMEN Ordering Facility: [facility] Address: [address] [place] [address] Performed By: #### 5 7021-8 #### [facility] CLIA [id number] [address] [place] [address] [place] Hemoglobin (Bld) [Mass/Vol] 13.5 g/dL Normal 13.0-17.0 [facility] Comment on above: Order Comment: Speci men Type: BLOOD SPECIMEN Ordering Facility: [facility] Address: [address] [place] [address] Performed By: #### 5 7021-8 #### [facility] CLIA [id number] [address] [place] Immature granulocytes (Bld) [#/Vol] 0.07 10*3/uL Normal <0.10 [facility] Comment on above: Order Comment: Speci men Type: BLOOD SPECIMEN Ordering Facility: [facility] Address: [address] [place] [address] Performed By: #### 5 7021-8 #### [facility] CLIA [id number] [address] [place] Immature granulocytes/100 WBC (Bld) 0.6 % Normal [facility] Comment on above: Order Comment: Speci men Type: BLOOD SPECIMEN Ordering Facility: [facility] Address: [address] [place] [address] Performed By: #### 5 7021-8 #### [facility] CLIA [id number] [address] [place] Lymphocytes (Bld) [#/Vol] 1.39 10*3/uL Normal 1.00-4.00 [facility] Comment on above: Order Comment: Speci men Type: BLOOD SPECIMEN Ordering Facility: [facility] Address: [address] [place] [address] Performed By: #### 5 7021-8 #### [facility] CLIA [id number] [address] Lymphocytes/100 WBC (Bld) 12.2 % Normal [facility] Comment on above: Order Comment: Speci men Type: BLOOD SPECIMEN Ordering Facility: [facility] Address: [address] [place] [address] Performed By: #### 5 7021-8 #### [facility] CLIA [id number] [address] MCH (RBC) [Entitic mass] 31.3 pg Normal 26.0-34.0 [facility] Comment on above: Order Comment: Speci men Type: BLOOD SPECIMEN Ordering Facility: [facility] Address: [address] [place] [address] Performed By: #### 5 7021-8 #### [facility] CLIA [id number] [address] [place] MCHC (RBC) [Mass/Vol] 33.4 g/dL Normal 30.5-36.0 [facility] Comment on above: Order Comment: Speci men Type: BLOOD SPECIMEN Ordering Facility: [facility] Address: [address] [place] [address] Performed By: #### 5 7021-8 #### [facility] CLIA [id number] [address] MCV (RBC) [Entitic vol] 93.5 fL Normal 80.0-100.0 [facility] Comment on above: Order Comment: Speci men Type: BLOOD SPECIMEN Ordering Facility: [facility] Address: [address] [place] [address] Performed By: #### 5 7021-8 #### [facility] CLIA [id number] [address] [place] Monocytes (Bld) [#/Vol] 1.25 10*3/uL High <0.87 [facility] Comment on above: Order Comment: Speci men Type: BLOOD SPECIMEN Ordering Facility: [facility] Address: [address] [place] [address] Performed By: #### 5 7021-8 #### [facility] CLIA [id number] [address] [place] [address] [place] Monocytes/100 WBC (Bld) 11.0 % Normal [facility] Comment on above: Order Comment: Speci men Type: BLOOD SPECIMEN Ordering Facility: [facility] Address: [address] [place] [address] Performed By: #### 5 7021-8 #### [facility] CLIA [id number] [address] [place] [address] [place] Neutrophils (Bld) [#/Vol] 8.45 10*3/uL High 1.45-7.50 [facility] Comment on above: Order Comment: Speci men Type: BLOOD SPECIMEN Ordering Facility: [facility] Address: [address] [place] [address] Performed By: #### 5 7021-8 #### [facility] CLIA [id number] [address] [place] [address] [place] Neutrophils/100 WBC (Bld) 74.2 % Normal [facility] Comment on above: Order Comment: Speci men Type: BLOOD SPECIMEN Ordering Facility: [facility] Address: [address] [place] [address] Performed By: #### 5 7021-8 #### [facility] CLIA [id number] [address] [place] [address] [place] Nucleated RBC (Bld) [#/Vol] 10*3/uL Normal <0.01 [facility] Comment on above: Order Comment: Speci men Type: BLOOD SPECIMEN Ordering Facility: [facility] Address: [address] [place] [address] Performed By: #### 5 7021-8 #### [facility] CLIA [id number] [address] [place] [address] [place] Nucleated RBC/100 WBC (Bld) [Ratio] 0.0 /100 WBC Normal [facility] Comment on above: Order Comment: Speci men Type: BLOOD SPECIMEN Ordering Facility: [facility] Address: [address] [place] [address] Performed By: #### 5 7021-8 #### [facility] CLIA [id number] [address] [place] Platelet mean volume (Bld) [Entitic vol] 9.8 fL Normal 9.0-12.7 [facility] Comment on above: Order Comment: Speci men Type: BLOOD SPECIMEN Ordering Facility: [facility] Address: [address] [place] [address] Performed By: #### 5 7021-8 #### [facility] CLIA [id number] [address] [place] Platelets (Bld) [#/Vol] 167 10*3/uL Normal 150-400 [facility] Comment on above: Order Comment: Speci men Type: BLOOD SPECIMEN Ordering Facility: [facility] Address: [address] [place] [address] Performed By: #### 5 7021-8 #### [facility] CLIA [id number] [address] [place] [address] [place] [facility] [place] RBC (Bld) [#/Vol] 4.32 10*6/uL Normal 4.20-6.00 [facility] Comment on above: Order Comment: Speci men Type: BLOOD SPECIMEN Ordering Facility: [facility] Address: [address] [place] [address] Performed By: #### 5 7021-8 #### [facility] CLIA [id number] [address] [place] WBC (Bld) [#/Vol] 11.39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 Cardiology Comment on above: Paroxysmal atrial fi brillation (HCC) (Primary Dx) Schedule Surgery (Re do PVI ablation) Start: 10-25-2022 Orders Only Dileep sethi MD Work Phone: Cardiology Comment on above: Paroxysmal atrial fi brillation (HCC) (Primary Dx) Start: 10-24-2022 Telephone encounter Dileep farley MD Work Phone: Cardiology Comment on above: Medication Problem Start: 09-05-2022 Refill Dileep sethi MD Work Phone: Cardiology Comment on above: Refill Request (xare lto) Start: 06-16-2022 Refill Dileep sethi MD Work Phone: Cardiology Comment on above: Refill Request Start: 06-05-2022 End: 06-05-2022 Patient encounter procedure Dileep Abernathy MD Work Phone: Cardiology Comment on above: Atypical atrial flut ter (HCC) (Primary Dx) Start: 05-19-2022 Orders Only Dileep sethi MD Work Phone: Cardiology Comment on above: Paroxysmal atrial fi brillation (HCC) (Primary Dx) Start: 02-24-2022 Telephone encounter Dileep farley MD Work Phone: Cardiology Comment on above: Patient Question Start: 02-20-2022 Refill Dileep sethi MD Work Phone: Cardiology Comment on above: Refill Request Start: 02-20-2022 Telephone encounter Dileep farley MD Work Phone: Cardiology Comment on above: Necktie Maker - O ther Start: 10-28-2021 Orders Only Kanika Good nd PORTAL DEVELOPER.SUPPLY REQUIREMENTS OFFICER Work Phone: Cardiology Comment on above: Persistent atrial fi brillation (HCC) (Primary Dx) Start: 10-04-2021 ambulatory Dileep sethi MD Work Phone: Cardiology Comment on above: Patient Education (E P: DCC) Start: 10-04-2021 Telephone encounter Dileep farley MD Work Phone: Cardiology Comment on above: Future Appointment ( EP: DCC) Start: 10-03-2021 Telephone encounter Dileep farley MD Work Phone: Cardiology Comment on above: Appointment Start: 09-26-2021 End: 09-26-2021 Patient encounter procedure Dileep Abernathy MD Work Phone: Cardiology Comment on above: Atrial fibrillation, persistent (HCC) (Primary Dx) Start: 08-26-2021 Telephone encounter Dileep farley MD Work Phone: Cardiology Comment on above: Patient Assistance ( Xarelto) Procedures Date Procedure Procedure Detail Performing Clinician Start: 09-06-2024 Radex fingr minimum 2 views Larry Ba APRN.SUPPLY REQUIREMENTS OFFICER Work Phone: Start: 04-26-2023 ARRHYTHMIA TRANS TEL E MEASURE Dileep Abernathy MD Work Phone: Start: 04-20-2023 ARRHYTHMIA TRANS TEL E MEASURE Dileep Abernathy MD Work Phone: Start: 02-27-2023 ARRHYTHMIA TRANS TEL E MEASURE Dileep Abernathy MD Work Phone: Start: 02-15-2023 ARRHYTHMIA TRANS TEL E MEASURE Dileep Abernathy MD Work Phone: Start: 02-02-2023 ARRHYTHMIA TRANS TEL E MEASURE Dileep Abernathy MD Work Phone: Start: 03-10-2011 Lipid 1996 panel - S chester or Plasma Dileep Abernathy MD Work Phone: Start: 02-28-2011 Colonoscopy Dileep farley MD Work Phone: Plan of Treatment Date Care Activity Detail Author Start: 2028 RSV Vaccine (1 - 1-d ose 75+ series) RSV Vaccine (1 - 1-dose 75+ series) [facility] Start: 01-26-2026 [facility] Screening [facility] Start: 01-22-2026 Diabetes Screening [facility] Start: 12-28-2024 Screening for malign ant neoplasm of colon Cologuard (FIT-DNA) [facility] Start: 11-10-2024 Influenza vaccination [facility] Start: 10-07-2024 DIABETES SCREEN DIABETES SCREEN [facility] Start: 04-30-2024 End: 04-30-2024 Patient encounter procedure 04/30/2024 9:15 AM EST Office Visit Cardiology [address] [id number] Dileep Abernathy MD [address] [place] [address] DX: AF; Current use of residential anticoagulation Cardiology Comment on above: DX: AF; Current use of moth exterminator anticoagulation Start: 04-30-2024 End: 04-30-2024 Anticoagulant drug monitoring 04/30/2024 8:15 AM EST Results Only Cardiology [address] [place] [address] DX: AF; Current use of residential anticoagulation Cardiology Comment on above: DX: AF; Current use of moth exterminator anticoagulation Start: 03-12-2024 Advance Directive Discussion Advance Directive Discussion [facility] Start: 02-24-2024 DIABETES SCREEN DIABETES SCREEN [facility] Start: 11-11-2023 Covid-19 Vaccine ( season) Covid-19 Vaccine () [facility] Start: 11-11-2023 Influenza vaccination C [facility] Start: 10-26-2023 End: 10-26-2023 Patient encounter procedure 10/26/2023 1:00 PM EDT Office Visit Cardiology [address] [id number] Selina Parrish APRN.SUPPLY REQUIREMENTS OFFICER [address] [place] [address] dx: AF; Current use of residential anticoagulation Cardiology Comment on above: dx: AF; Current use of residential anticoagulation Start: 10-26-2023 End: 10-26-2023 Anticoagulant drug monitoring 10/26/2023 12:15 PM EDT Results Only Cardiology [address] [address] dx: AF; Current use of residential anticoagulation Cardiology Comment on above: dx: AF; Current use of residential anticoagulation Start: 05-20-2023 End: 05-20-2023 ECG COMPLETE ECG COMPLETE ECG Routine Paroxysmal atrial fibrillation (HCC) Expected: 05/20/2023, Expires: 05/20/2023 [facility] Work Phone: Comment on above: Expected: 05/20/2023 , Expires: 05/20/2023 Start: 03-12-2023 Advance Directive Discussion Advance Directive Discussion [facility] Start: 03-12-2023 Behavioral Health Screening Behavioral Health Screening [facility] Start: 03-12-2023 Depression Assessment Depression Ass essment [facility] Start: 01-22-2023 End: 11-07-2023 Basic metabolic 2000 panel - Serum or Plasma BASIC METABOLIC PNL Lab Routine Paroxysmal atrial fibrillation (HCC) Expected: 01/22/2023, Expires: 11/07/2023 [facility] Work Phone: Comment on above: Expected: 01/22/2023 , Expires: 11/07/2023 Start: 01-22-2023 End: 11-09-2023 CBC panel - Blood by Automated count CBC Lab Routine Paroxysmal atrial fibrillation (HCC) Expected: 01/22/2023, Expires: 11/09/2023 [facility] Work Phone: Comment on above: Expected: 01/22/2023 , Expires: 11/09/2023 Start: 01-22-2023 End: 11-09-2023 TYPE + SCREEN TYPE + SCREEN Blood Bank Routine Paroxysmal atrial fibrillation (HCC) Expected: 01/22/2023, Expires: 11/09/2023 [facility] Work Phone: Comment on above: Expected: 01/22/2023 , Expires: 11/09/2023 Start: 11-10-2022 Covid-19 Vaccine (2022- season) Covid-19 Vaccine ( season) [facility] Start: 11-10-2022 Influenza vaccination [facility] Start: 05-10-2022 COVID-19 VACCINE (5 - Moderna series) COVID-19 VACCINE (5 - Moderna series) [facility] Start: 03-12-2022 ADVANCE DIRECTIVE DISCUSSION ADVANCE DIRECTIVE DISCUSSION [facility] Start: 03-12-2022 DEPRESSION ASSESSMENT DEPRESSION ASS ESSMENT [facility] Start: 12-29-2021 Screening for malign ant neoplasm of colon Colorectal Cancer Screening [facility] Start: 11-10-2021 Influenza vaccination [facility] Start: 03-12-2021 ADVANCE DIRECTIVE DISCUSSION ADVANCE DIRECTIVE DISCUSSION [facility] Start: 03-12-2021 DEPRESSION ASSESSMENT DEPRESSION ASS ESSMENT [facility] Start: 02-10-2021 Pneumococcal Vaccine : 50+ (2 of 2 - PCV) Pneumococcal Vaccine: 50+ (2 of 2 - PCV) [facility] Start: 02-10-2021 Pneumococcal Vaccine : 65+ (2 - PCV) Pneumococcal Vaccine: 65+ (2 - PCV) [facility] Start: 02-10-2021 Pneumococcal Vaccine : 65+ (2 of 2 - PCV) Pneumococcal Vaccine: 65+ (2 of 2 - PCV) [facility] Start: 2018 PNEUMOCOCCAL: 65+ (1 - PCV) PNEUMOCOCCAL: 65+ (1 - PCV) [facility] Start: 03-12-2018 Medicare Annual Well ness Visit Medicare Annual Wellness Visit [facility] Start: 03-10-2016 Lipid 1996 panel - S chester or Plasma Lipid Screening [facility] Start: 03-10-2016 Lipid panel Lipid Screening [facility] Start: 03-10-2016 LIPID SCREEN LIPID SCREEN [facility] Start: 02-29-2016 Colonoscopy COLONOSCOPY [facility] Start: 02-29-2016 COLORECTAL CANCER SCREENING COLORECTAL CANCER SCREENING [facility] Start: 02-29-2016 Screening for malign ant neoplasm of colon [facility] Start: 2013 RSV Vaccine (1 - 1-d ose 60+ series) RSV Vaccine (1 - 1-dose 60+ series) [facility] Start: 2008 PROSTATE CANCER SCRE ENING DISCUSSION PROSTATE CANCER SCREENING DISCUSSION [facility] Start: 2003 SHINGRIX VACCINE (1 of 2) RIVERA GRIX VACCINE (1 of 2) [facility] Start: 07-11-2002 Urine microalbumin profile DTaP,Tdap,Td Vaccine (1 - Tdap) [facility] Start: 1998 COLOGUARD (FIT-DNA) COLOGUARD (FIT-D NA) [facility] Start: [address] COLONOGRAPHY [facility] Start: 1998 FECAL OCCULT BLOOD FECAL OCCULT BLOO D [facility] Start: 1998 Screening for malign ant neoplasm of colon [facility] Start: 1998 SIGMOIDOSCOPY SIGMOIDOSCOPY [facility] Start: 1972 Urine microalbumin profile DTAP,TDAP,TD (1 - Tdap) [facility] Start: 1971 Anxiety Screening Anxiety Screening [facility] Start: 1971 Depression Screening Depression Scre ening [facility] Start: 1971 HEPATITIS C SCREENING HEPATITIS C [facility] Start: 1971 Hepatitis C screening Hepatitis C [facility] Start: 1965 Adult depression screening assessment DEPRESSION SCREENING [facility] Start: 1958 COVID-19 VACCINE (#1) COVID-19 VACCI NE (#1) [facility] Start: 1953 COVID-19 VACCINE (#1) COVID-19 VACCI NE (#1) [facility] Start: 1953 ABDOMINAL AORTIC ANE URYSM SCREENING ABDOMINAL AORTIC ANEURYSM SCREENING [facility] Start: 1953 Abdominal aortic ane urysm screening Abdominal Aortic Aneurysm Screening [facility] End: 09-26-2022 ECG COMPLETE ECG COMPLETE ECG Routine Atrial fibrillation, persistent (HCC) 1 Occurrences starting 09/26/2021 until 09/26/2022 [facility] Work Phone: Comment on above: 1 Occurrences starti ng 09/26/2021 until 09/26/2022 End: 10-28-2022 ECG COMPLETE ECG COMPLETE ECG Routine Persistent atrial fibrillation (HCC) 1 Occurrences starting 10/28/2021 until 10/28/2022 [facility] Work Phone: Comment on above: 1 Occurrences starti ng 10/28/2021 until 10/28/2022 End: 11-09-2023 ECG COMPLETE ECG COMPLETE ECG Routine Paroxysmal atrial fibrillation (HCC) 1 Occurrences starting 11/08/2022 until 11/09/2023 [facility] Work Phone: Comment on above: 1 Occurrences starti ng 11/08/2022 until 11/09/2023 End: 02-15-2024 ECG COMPLETE ECG COMPLETE ECG Routine AF (paroxysmal atrial fibrillation) (HCC) 1 Occurrences starting 02/14/2023 until 02/15/2024 [facility] Work Phone: Comment on above: 1 Occurrences starti ng 02/14/2023 until 02/15/2024 End: 05-10-2024 ECG COMPLETE ECG COMPLETE ECG Routine AF (paroxysmal atrial fibrillation) (HCC) 1 Occurrences starting 05/11/2023 until 05/10/2024 [facility] Work Phone: Comment on above: 1 Occurrences starti ng 05/11/2023 until 05/10/2024 End: 08-06-2024 ECG COMPLETE ECG COMPLETE ECG Routine AF (paroxysmal atrial fibrillation) (HCC) Current use of moth exterminator anticoagulation 1 Occurrences starting 08/07/2023 until 08/06/2024 [facility] Work Phone: Comment on above: 1 Occurrences starti ng 08/07/2023 until 08/06/2024 End: 02-15-2024 Echocardiography ECHO Cardiology Routine AF (paroxysmal atrial fibrillation) (HCC) 1 Occurrences starting 02/14/2023 until 02/15/2024 [facility] Work Phone: Comment on above: 1 Occurrences starti ng 02/14/2023 until 02/15/2024 XR FOOT GENERAL 3V AP/LAT/OBL RIGHT XR FOOT GENERAL 3V AP/LAT/OBL RIGHT Radiology Routine Pain 02/20/2023 11:17 AM EST [facility] Work Phone: [facility] Immunizations Immunization Date Immunization Notes Care Provider Fa cili 02-26-2022 influenza virus vaccine, unspecified formulation Dileep Abernathy MD Work Phone: [facility] Payers Date Payer Category Payer Self-pay 2019 Private Health Insurance MMO MED ICARE SUPPLEMENT [id number] 2019 Unknown MMO MMO MEDICARE SUPPLEMENT [id number] 2019-Present [phone] [address] [place] [address] Indemnity [id number] 2019 Unknown MMO MMO MEDICARE SUPPLEMENT [id number] 2019-Present [phone] [address] [place] [address] Indemnity [id number] 2019 Medicare [id number] 2018 Medicare MEDICARE MEDICAR E A AND B [id number] 2018-Present [phone] [place] [address] Medicare [id number] 2018 Medicare [id number] 2018 Medicare [id number] Unknown [id number] Social History Date Type Detail Facility Start: 02-12-2018 End: 06-05-2022 Tobacco smoking status NHIS Ex-smoker [facility] End: 02-12-1998 History of tobacco use Current smoker [facility] Start: 02-23-2021 End: 09-06-2024 Alcohol intake Current non-drinker of alcohol (finding) [facility] Start: 03-01-2009 End: 06-05-2022 Tobacco Comment Quit @ 10 years ago [facility] Start: 1955 Sex Assigned At Male [facility] End: 02-12-1998 History of tobacco use Cigarette Smoker [facility] Work Phone: Start: 02-12-2018 End: 06-05-2022 Tobacco use and exposure Smokeless tobacco non-user [facility] Work Phone: Start: 09-26-2021 End: 10-06-2021 Exposure to SARS-CoV-2 (event) Not sure [facility] Start: 06-05-2022 End: 01-23-2023 History of Social function [facility] Start: 06-05-2022 End: 01-23-2023 Tobacco use panel [facility] National Score (1-10 0), lower number is lower risk 57 [facility] Start: 02-18-2021 Gender identity Identifies as male gender (finding) [facility] Start: 02-18-2021 Sexual orientation Heterosexual (fin ding) [facility] Goals Date Patient Goal Desired Activity /State Personal health goal Functional Status Date Assessment Result Facility 07-13-2014 Are you deaf, or do you have serious difficulty hearing No 07/13/2014 10:43 AM Joleen Beach RN No [facility] Work Phone: 07-13-2014 Are you blind, or do you have serious difficulty seeing, even when wearing glasses No 07/13/2014 10:43 AM Joleen Beach RN No [facility] 07-13-2014 Do you have serious difficulty walking or climbing stairs No 07/13/2014 10:43 AM Joleen Beach RN No [facility] 07-13-2014 Do you have difficul ty dressing or bathing No 07/13/2014 10:43 AM Joleen Beach RN No [facility] 07-13-2014 Because of a physica l, mental, or emotional condition, do you have difficulty doing errands alone such as visiting a physician's office or shopping No 07/13/2014 10:43 AM Joleen Beach RN No [facility] Mental Status Date Assessment Result Facility 07-13-2014 Because of a physica l, mental, or emotional condition, do you have serious difficulty concentrating, remembering, or making decisions No 07/13/2014 10:43 AM Joleen Beach RN No [facility] Clinical Notes 08-26-2021 to 10-12-2024 No Benjamin APRN.CNP - 10/12/2024 1:46 PM EDTTelephone Encounter - Andra Espinoza MA - 09/08/2024 9:55 AM EDTTelephone Encounter - Andra Espinoza MA - 09/08/2024 9:55 AM EDTPatient Instructions Note Date & Type Note Facility 10-12-2024 Note HNO ID: [id number] Author: NO BENJAMIN APRN.MOE Service: ? Author Type: Nurse Practitioner Type: Progress Notes Filed: 10/12/2024 13:49 Note Text: Bang Root is a 69 year old male. HPI Patient presents today for evaluation of a burn to the palmar aspect of his left forearm which happened today while working on his vehicle. He notes that some sort of hot fluid came out of the cart landing on his forearm creating the burn. He otherwise denies any other injuries or health concerns. Review of Systems As above Objective BP 110/72 Pulse 62 Temp 36.2 ?C (97.2 ?F) Resp 16 Wt 79.5 kg (175 lb 4.3 oz) SpO2 97% BMI 25.88 kg/m? Physical Exam Vitals and nursing note reviewed. Constitutional: General: He is not in acute distress. Appearance: Normal appearance. He is not ill-appearing. HENT: Head: Normocephalic. Pulmonary: Effort: Pulmonary effort is normal. Musculoskeletal: General: Normal range of motion. Skin: General: Skin is warm. Comments: Palmar aspect left forearm extending from wrist to just below the antecubital fossa and approximately one half of the circumference of the forearm there is an erythematous area consistent with a superficial burn. No blistering noted. No streaking noted Neurological: General: No focal deficit present. Mental Status: He is alert and oriented to person, place, and time. Psychiatric: Mood and Affect: Mood normal. Behavior: Behavior normal. ASSESSMENT/PLAN: 1. Superficial burn of left forearm, initial encounter - ICD9: 943.11, ICD10: T22.112A - At this point there are no blisters and patient's presentation is consistent with a superficial burn. Burn is not circumferential. Patient's tetanus shot is up-to-date. Discussed with him basic burn care including cool compresses and using antibiotic ointment if at any point you were to develop any blistering. Recommended follow-up with PCP for continued evaluation and monitoring. Due to patient taking Eliquis he will use Tylenol as needed for pain. No Benjamin APRN.SUPPLY REQUIREMENTS OFFICER [facility] 10-12-2024 History of Present illness Narrative Images from the original note were not included. Subjective Tonya Root is a 69 year old male. HPI Patient presents today for evaluation of a burn to the palmar aspect of his left forearm which happened today while working on his vehicle. He notes that some sort of hot fluid came out of the cart landing on his forearm creating the burn. He otherwise denies any other injuries or health concerns. Review of Systems As above Objective BP 110/72 Pulse 62 Temp 36.2 C (97.2 F) Resp 16 Wt 79.5 kg (175 lb 4.3 oz) SpO2 97% BMI 25.88 kg/m Physical Exam Vitals and nursing note reviewed. Constitutional: General: He is not in acute distress. Appearance: Normal appearance. He is not ill-appearing. HENT: Head: Normocephalic. Pulmonary: Effort: Pulmonary effort is normal. Musculoskeletal: General: Normal range of motion. Skin: General: Skin is warm. Comments: Palmar aspect left forearm extending from wrist to just below the antecubital fossa and approximately one half of the circumference of the forearm there is an erythematous area consistent with a superficial burn. No blistering noted. No streaking noted Neurological: General: No focal deficit present. Mental Status: He is alert and oriented to person, place, and time. Psychiatric: Mood and Affect: Mood normal. Behavior: Behavior normal. ASSESSMENT/PLAN: 1. Superficial burn of left forearm, initial encounter - ICD9: 943.11, ICD10: T22.112A - At this point there are no blisters and patient's presentation is consistent with a superficial burn. Burn is not circumferential. Patient's tetanus shot is up-to-date. Discussed with him basic burn care including cool compresses and using antibiotic ointment if at any point you were to develop any blistering. Recommended follow-up with PCP for continued evaluation and monitoring. Due to patient taking Eliquis he will use Tylenol as needed for pain. No Benjamin APRN.CNP documented in this encounter [facility] 09-08-2024 Telephone encounter Note Patient given results and verbalized understanding of instructions given. Andra Espinoza MA [facility] 09-08-2024 Miscellaneous Notes Patient given results and verbalized understanding of instructions given. Andra Espinoza MA Left VM for patient spouse to return call to receive results. Joycelyn Sheppard MA Please inform patient that x-ray was unremarkable. Larry Ba APRN.MOE documented in this encounter [facility] 09-06-2024 Telephone encounter Note Patient calling for thumb xray results. Patient denies any new or worsening symptoms of which a provider is not aware: Yes. Read to patient office note from today about xray being unremarkable. Told him no fracture seen. Patient said doctor gave him a brace for thumb and advised use of ice. Advised him to call office when open on Sunday to give a condition update. Gave patient Nurse Light Cleaner closing GO TO THE EMERGENCY ROOM OR CALL 911 IF: * You develop any new symptoms * Your condition worsens * You are concerned or anxious about your condition for any other reason. If you have any questions, you can call Nurse account consultant back. [facility] 09-06-2024 Miscellaneous Notes Patient calling for thumb xray results. Patient denies any new or worsening symptoms of which a provider is not aware: Yes. Read to patient office note from today about xray being unremarkable. Told him no fracture seen. Patient said doctor gave him a brace for thumb and advised use of ice. Advised him to call office when open on Sunday to give a condition update. Gave patient Nurse Light Cleaner closing GO TO THE EMERGENCY ROOM OR CALL 911 IF: * You develop any new symptoms * Your condition worsens * You are concerned or anxious about your condition for any other reason. If you have any questions, you can call Nurse account consultant back. documented in this encounter [facility] 09-06-2024 Telephone encounter Note Left VM for patient spouse to return call to receive results. Joycelyn Sheppard MA [facility] 09-06-2024 Telephone encounter Note Please inform patient that x-ray was unremarkable. Larry Ba APRN.MOE [facility] 09-06-2024 History of Present illness Narrative Radiology Service Progress Note PATIENT NAME: Tonya Root DATE OF SERVICE: September 06, 2024 TIME: 8:24 AM PATIENT IDENTITY VERIFICATION COMPLETED USING TWO (2) IDENTIFIERS: Name and Date of confirmed by patient verbally. FALL SCREENING: Has the patient had 2 falls in the last year or 1 fall with injury or currently using an Ambulatory Assistive Device (Walker, Cane, Wheelchair, Crutches, etc.)? No PATIENT GENDER DATA: Assigned male at PATIENT RELEVANT IMPLANT DATA REVIEWED: Yes PATIENT PRESENTS WITH AN IMPLANTABLE OR ATTACHED FROG OR OYSTER FARMWORKER: No RADIOLOGY DEPARTMENT: General X-ray: Exam(s) Completed: Upper Extremity X-Ray(s): Fingers/Thumb, right PERIPHERAL IV DATA: Not applicable SIGNED BY: RT Denise(Pablo) September 06, 2024 8:24 AM documented in this encounter [facility] 09-06-2024 Note HNO ID: [id number] Author: FERNANDO HOANG RT(Pablo) Service: ? Author Type: Environmental Monitoring Technician Type: Progress Notes Filed: 09/06/2024 08:32 Note Text: Radiology Service Progress Note PATIENT NAME: Tonya Root DATE OF SERVICE: September 06, 2024 TIME: 8:24 AM PATIENT IDENTITY VERIFICATION COMPLETED USING TWO (2) IDENTIFIERS: Name and Date of confirmed by patient verbally. FALL SCREENING: Has the patient had 2 falls in the last year or 1 fall with injury or currently using an Ambulatory Assistive Device (Walker, Cane, Wheelchair, Crutches, etc.)? No PATIENT GENDER DATA: Assigned male at PATIENT RELEVANT IMPLANT DATA REVIEWED: Yes PATIENT PRESENTS WITH AN IMPLANTABLE OR ATTACHED FROG OR OYSTER FARMWORKER: No RADIOLOGY DEPARTMENT: General X-ray: Exam(s) Completed: Upper Extremity X-Ray(s): Fingers/Thumb, right PERIPHERAL IV DATA: Not applicable SIGNED BY: RT Denise(R) September 06, 2024 8:24 AM [facility] 09-06-2024 Note HNO ID: [id number] Author: LARRY BA APRN.SUPPLY REQUIREMENTS OFFICER Service: ? Author Type: Nurse Practitioner Type: Progress Notes Filed: 09/08/2024 07:09 Note Text: Subjective HPI Nontoxic-appearing 69-year-old male presents urgent care accompanied by significant other. Chief complaint left thumb injury. Patient states slammed finger in car door yesterday. Is having pain with this. Does have some bleeding under nail. Is on Eliquis due to A-fib. Had ablation in 2022. Has been in rhythm since. No numbness no tingling. No decrease sensation. No decreased strength. Has taken acetaminophen. This has helped with discomfort. No other concerns. Past medical history prescription medications allergies reviewed. [id number]. No surgeries fractures previously .Patient presents with: Trauma: Slammed right hand thumb in car door x 1 day PAST MEDICAL HISTORY Diagnosis Date Anxiety state, unspecified Atrial fibrillation (HCC) 01/01/2009 Atrial flutter (HCC) Diverticulosis of colon (without mention of hemorrhage) Osteoarthrosis, unspecified whether generalized or localized, lower leg Other forms of migraine, without mention of intractable migraine without mention of status migrainosus Personal history of colonic polyps Shingles PAST SURGICAL HISTORY Procedure Laterality Date AFIB PVI W/COMPL EP STUDY 2010 CARDIOVERSION multiple, last 04/09/18 PAST SURGICAL HISTORY OF 2007 Aflutter RFA CTI line PAST SURGICAL HISTORY OF 03/2007 foot surgery PT [facility]ASCULAR 01/23/2023 ablation ALLERGIES Patient has no known allergies. MEDICATIONS pantoprazole DR (PROTONIX) 20 mg tablet Take 20 mg by mouth once daily. rivaroxaban (XARELTO) 20 mg tablet Take 1 tablet by mouth daily with dinner. fluticasone (FLONASE) 50 mcg/actuation nasal spray USE 1 TO 2 SPRAY(S) IN EACH NOSTRIL ONCE DAILY multivit-mins no.63/iron/folic (M-VIT ORAL) Take by mouth. FAMILY HISTORY Problem Relation Age of Onset Stroke Mother d. age 70 Emphysema Father d age 68 None Sister Heart Brother d. age 46; SCD other (Other) Brother MS Blood Disease Son d. age 4; Leukemia Social History Tobacco Use Smoking status: Former Current packs/day: 0.00 Types: Cigarettes Quit date: 02/12/1998 Years since quittin.5 Smokeless tobacco: Never Tobacco comments: Quit @ 10 years ago Vaping Use Vaping status: Never Used Substance Use Topics Alcohol use: No Drug use: No BP 122/64 Pulse 60 Temp 36.5 ?C (97.7 ?F) Resp 19 Wt 78.5 kg (173 lb 1 oz) SpO2 97% BMI 25.56 kg/m? Review of Systems Constitutional: Negative for chills, fever and malaise/fatigue. Musculoskeletal: Positive for joint pain. Negative for back pain, falls, myalgias and neck pain. Neurological: Negative for dizziness, loss of consciousness, weakness and headaches. Objective Physical Exam Constitutional: General: He is not in acute distress. Appearance: He is not toxic-appearing. HENT: Head: Normocephalic. Nose: Nose normal. Eyes: Pupils: Pupils are equal, round, and reactive to light. Cardiovascular: Rate and Rhythm: Normal rate. Pulmonary: Effort: Pulmonary effort is normal. No respiratory distress. Musculoskeletal: Cervical back: Normal range of motion. Comments: Pain with palpation to distal aspect of thumb right hand. Ecchymosis noted to palmar aspect as well as hematoma neck noted dorsal aspect. Neurovascular intact. Full strength. Skin: General: Skin is warm and dry. Neurological: General: No focal deficit present. Mental Status: He is alert. ASSESSMENT/PLAN: 1. Injury of right hand, initial encounter - ICD9: 959.4, ICD10: S69.91XA - XR DIGIT GENERAL 3V FRONTAL/LAT/OBL RIGHT IMPRESSION: Negative for acute fracture or malalignment of the right thumb. No acute findings on x-ray. Treat as contusion. Patient was educated on supportive therapies. Patient will follow up with primary care provider as needed. Patient was instructed to immediately proceed to emergency room for any new, worsening, or symptoms lasting longer than anticipated. The patient's clinical presentation is otherwise unremarkable at this time. Based on exam and clinical finding, the patient is stable for discharge. Plan of care was discussed with patient. Patient verbalizes understanding and agrees to plan of care. This note was generated using Dezineforce software. It may contain errors in wording, punctuation, or spelling. Larry Ba APRN.[facility] 09-06-2024 History of Present illness Narrative Subjective HPI Nontoxic-appearing 69-year-old male presents urgent care accompanied by significant other. Chief complaint left thumb injury. Patient states slammed finger in car door yesterday. Is having pain with this. Does have some bleeding under nail. Is on Eliquis due to A-fib. Had ablation in 2022. Has been in rhythm since. No numbness no tingling. No decrease sensation. No decreased strength. Has taken acetaminophen. This has helped with discomfort. No other concerns. Past medical history prescription medications allergies reviewed. [id number]. No surgeries fractures previously .Patient presents with: Trauma: Slammed right hand thumb in car door x 1 day PAST MEDICAL HISTORY Diagnosis Date Anxiety state, unspecified Atrial fibrillation (HCC) 01/01/2009 Atrial flutter (HCC) Diverticulosis of colon (without mention of hemorrhage) Osteoarthrosis, unspecified whether generalized or localized, lower leg Other forms of migraine, without mention of intractable migraine without mention of status migrainosus Personal history of colonic polyps Shingles PAST SURGICAL HISTORY Procedure Laterality Date AFIB PVI W/COMPL EP STUDY 2010 CARDIOVERSION multiple, last 04/09/18 PAST SURGICAL HISTORY OF 2007 Aflutter RFA CTI line PAST SURGICAL HISTORY OF 03/2007 foot surgery PT ED HEART [facility] VASCULAR 01/23/2023 ablation ALLERGIES Patient has no known allergies. MEDICATIONS pantoprazole DR (PROTONIX) 20 mg tablet Take 20 mg by mouth once daily. rivaroxaban (XARELTO) 20 mg tablet Take 1 tablet by mouth daily with dinner. fluticasone (FLONASE) 50 mcg/actuation nasal spray USE 1 TO 2 SPRAY(S) IN EACH NOSTRIL ONCE DAILY multivit-mins no.63/iron/folic (M-VIT ORAL) Take by mouth. FAMILY HISTORY Problem Relation Age of Onset Stroke Mother d. age 70 Emphysema Father d age 68 None Sister Heart Brother d. age 46; SCD other (Other) Brother MS Blood Disease Son d. age 4; Leukemia Social History Tobacco Use Smoking status: Former Current packs/day: 0.00 Types: Cigarettes Quit date: 02/12/1998 Years since quittin.5 Smokeless tobacco: Never Tobacco comments: Quit @ 10 years ago Vaping Use Vaping status: Never Used Substance Use Topics Alcohol use: No Drug use: No BP 122/64 Pulse 60 Temp 36.5 C (97.7 F) Resp 19 Wt 78.5 kg (173 lb 1 oz) SpO2 97% BMI 25.56 kg/m Review of Systems Constitutional: Negative for chills, fever and malaise/fatigue. Musculoskeletal: Positive for joint pain. Negative for back pain, falls, myalgias and neck pain. Neurological: Negative for dizziness, loss of consciousness, weakness and headaches. Objective Physical Exam Constitutional: General: He is not in acute distress. Appearance: He is not toxic-appearing. HENT: Head: Normocephalic. Nose: Nose normal. Eyes: Pupils: Pupils are equal, round, and reactive to light. Cardiovascular: Rate and Rhythm: Normal rate. Pulmonary: Effort: Pulmonary effort is normal. No respiratory distress. Musculoskeletal: Cervical back: Normal range of motion. Comments: Pain with palpation to distal aspect of thumb right hand. Ecchymosis noted to palmar aspect as well as hematoma neck noted dorsal aspect. Neurovascular intact. Full strength. Skin: General: Skin is warm and dry. Neurological: General: No focal deficit present. Mental Status: He is alert. ASSESSMENT/PLAN: 1. Injury of right hand, initial encounter - ICD9: 959.4, ICD10: S69.91XA - XR DIGIT GENERAL 3V FRONTAL/LAT/OBL RIGHT IMPRESSION: Negative for acute fracture or malalignment of the right thumb. No acute findings on x-ray. Treat as contusion. Patient was educated on supportive therapies. Patient will follow up with primary care provider as needed. Patient was instructed to immediately proceed to emergency room for any new, worsening, or symptoms lasting longer than anticipated. The patient's clinical presentation is otherwise unremarkable at this time. Based on exam and clinical finding, the patient is stable for discharge. Plan of care was discussed with patient. Patient verbalizes understanding and agrees to plan of care. This note was generated using Dezineforce software. It may contain errors in wording, punctuation, or spelling. Larry Ba APRN.SUPPLY REQUIREMENTS OFFICER documented in this encounter [facility] 06-03-2024 Telephone encounter Note Outside ep-7-pgs I have a copy @ my desk Louisa Marshall [facility] 06-03-2024 Miscellaneous Notes Outside ep-7-pgs I have a copy @ my desk Louisa Marshall documented in this encounter [facility] 05-30-2024 Telephone encounter Note Prior authorization request for additional information scanned into shared [address]. [facility] 05-30-2024 Miscellaneous Notes Prior authorization request for additional information scanned into [employer] drive. documented in this encounter [facility] 05-21-2024 Telephone encounter Note Outside ep-8-pgs I have a copy @ my desk Louisa Marshall [facility] 05-21-2024 Miscellaneous Notes Outside ep-8-pgs I have a copy @ my desk Louisa Marshall documented in this encounter [facility] 04-30-2024 History of Present illness Narrative Images from the original note were not included. [facility] [place] Violeta Ingram Department of Cardiovascular Medicine SECTION OF CARDIAC PACING and ELECTROPHYSIOLOGY OUTPATIENT VISIT DATE April 30, 2024 OUTPATIENT VISIT TYPE ESTABLISHED PRIMARY CARE PHYSICIAN: David Woods [address] [facility] [address] [id number] NURSING INTAKE HISTORY: Mr. Root is a 69 year old male who presents today for a follow-up visit for atrial fibrillation. He has a past medical history of atrial fibrillation/flutter with a CTI ablation in 2007, pulmonary vein isolation in 2010, multiple DCCV. He was previously maintained on Flecainide and Metoprolol until 2020 when he developed AFL and required several cardioversions. He developed persistent AFL in associated with dyspnea and fatigue. He had a redo AF/AFL ablation 01/23/2023. His Flecainide was stopped in May 2023. He has done well since his last ablation without any known recurrence of his arrhythmia. He remains on Xarelto without any significant bleeding issues. Overall he is feeling well. CHADS2-Vasc Score Breakdown 1 Total Score 1 Age 65-74 years old PAST MEDICAL HISTORY Diagnosis Date Anxiety state, unspecified Atrial fibrillation (HCC) 01/01/2009 Atrial flutter (HCC) Diverticulosis of colon (without mention of hemorrhage) Osteoarthrosis, unspecified whether generalized or localized, lower leg Other forms of migraine, without mention of intractable migraine without mention of status migrainosus Personal history of colonic polyps Shingles PAST SURGICAL HISTORY Procedure Laterality Date AFIB PVI W/COMPL EP STUDY 2011 CARDIOVERSION multiple, last 04/09/18 PAST SURGICAL HISTORY OF 2007 Aflutter RFA CTI line PAST SURGICAL HISTORY OF 03/2007 foot surgery PT ED HEART AND VASCULAR 01/23/2023 ablation SOCIAL HISTORY Social History Tobacco Use Smoking status: Former Current packs/day: 0.00 Types: Cigarettes Quit date: 02/12/1998 Years since quittin.2 Smokeless tobacco: Never Tobacco comments: Quit @ 10 years ago Vaping Use Vaping status: Never Used Substance Use Topics Alcohol use: No Drug use: No FAMILY HISTORY Problem Relation Age of Onset Stroke Mother d. age 70 Emphysema Father d age 68 None Sister Heart Brother d. age 46; SCD other (Other) Brother MS Blood Disease Son d. age 4; Leukemia ALLERGIES: ALLERGIES No Known Allergies MEDICATIONS: pantoprazole DR (PROTONIX) 20 mg tablet Take 20 mg by mouth once daily. rivaroxaban (XARELTO) 20 mg tablet Take 1 tablet by mouth daily with dinner. fluticasone (FLONASE) 50 mcg/actuation nasal spray USE 1 TO 2 SPRAY(S) IN EACH NOSTRIL ONCE DAILY multivit-mins no.63/iron/folic (M-VIT ORAL) Take by mouth. Iwona Wise RN PHYSICAL EXAMINATION: BP 118/68 Ht 175.3 cm (5' 9) Wt 77.6 kg (171 lb) BMI 25.25 kg/m CARDIOVASCULAR MEDICINE TESTING: EKG today: Echo: 05/11/2023 CONCLUSIONS: - Exam indication: Sustained atrial fibrillation - The left ventricle is normal in size. Left ventricular systolic function is normal. EF = 59 5% (2D biplane) Normal left ventricular diastolic function. - The right ventricle is normal in size. Right ventricular systolic function is normal. - The right atrial cavity is dilated. - 1+ MR. - Patient had frequent ectopy throughout exam. - Exam was compared with the prior echocardiographic exam performed on 09/20/2021. Interval improvement in LVEF on direct comparison. EP STAFF NOTE: Please note: This note has been produced using speech recognition software and may contain errors related to that system including grammar, punctuation, spelling, gender and words and phrases that may be inappropriate Consultation initially requested by Dr. Chavira for an opinion regarding management of AF I have reviewed the above information and examined the patient and confirm the above with the following additions/modifications. Post [facility] : PE: Vitals: BP 118/68 Ht 175.3 cm (5' 9) Wt 77.6 kg (171 lb) BMI 25.25 kg/m General: Appears well nourished. In no acute distress. Lungs: Unlabored Heart: RRR Extremities: No peripheral edema bilaterally. PROBLEM LIST: patient of Dr. Chavira who was last seen on 11/04/2019 by Rea Hernandez CNP. HTN atrial fibrillation/flutter with a CTI ablation in 2007 pulmonary vein isolation in 2010, cardioversion on 11/04/2019. , . Patient has been on a rhythm controlling strategy with flecainide 150 mg twice daily as well as rate control with Lopressor 12.5 mg twice daily CHADS VASc - 2 - HTN and age - anticoagulant therapy with Xarelto 20 mg daily. JOSHUA : - The left ventricle is normal in size. Left ventricular systolic function is normal. EF = 55 5% (visual est.) - The right ventricle is normal in size. Right ventricular systolic function is normal. - The left atrial cavity is dilated. - There is no patent foramen ovale as detected by Doppler and saline contrast. - There is no LA/ LA appendage thrombi visualized. - No significant valvular abnormalities. - Exam was compared with the prior echocardiographic exam performed on 01/18/2010. Comparable findings. rate related RBBB Cardiac CT 2010: IMPRESSION: 1. The left atrium receives 4 pulmonary veins. First branch of the right lower pulmonary vein appears severely narrowed at its ostium. Left lower pulmonary vein shows mild wall thickening with minimal luminal narrowing and compression from descending aorta (5 x 17 mm). There is a posterior mediastinal vein which drains into right middle pulmonary vein. The right middle vein is a branch of the right superior pulmonary vein. 2. No left atrial or left atrial appendage thrombus. IMPRESSION / PLAN: 69 y/o with recurrent persistent, symptomatic AF despite prior CTI RFA 2007 and PVI 2010. He has mild LIPV stenosis. Not immediately aware of AF - but more fatigued / SOB when in a persistent event. Can tele in AF by increase in HR on home checks. He has required multiple cardioversion in the past year despite ongoing therapy with high dose Flecainide and BB. DCC 11/04/2019. , . LA was significantly enlarged by CT 2010 Referred to me - VV at that time d/t weather. Reviewed additional rhythm control options - switch to Tikosyn versus redo PVI. R/B reviewed. Wanted to defer a change in management until event rate worsens. Seen -in AFL with a controlled V rate at 75 bpm. Could tell by his VS checks that he developed recurrent AF / AFL 09-12-21. Feels more fatigued in AFL. Remains on high dose Flec, metoprolol and xarelto as prescribed by Dr. Chavira. TTE updated : - The left ventricle is normal in size. Left ventricular systolic function is mildly decreased. EF = 50 5% (2D biplane) Grade II left ventricular diastolic dysfunction. - The right ventricle is normal in size. Right ventricular systolic function is normal. - The left atrial cavity is severely dilated. - Mild (1+) MR. - Mild (1+) TR. - Estimated right ventricular systolic pressure is 46 mmHg consistent with mild pulmonary hypertension. Estimated right atrial pressure is 3 mmHg (although IVC not seen). - Exam was compared with the prior echocardiographic exam performed on 06/10/2015 (JOSHUA). Prior EF was 55%. Reviewed management options - includng switching to rate control versus additional rhythm control management with DCC as needed, versus switch to Tikosyn versus redo PVI and atypical AFL RFA. DCC 10-07-21 He developed recurrent AFL on 12/15/21 and has remained in this since. He notes GU, fatigue and imbalance when in AFL. Re-reviewed Tikosyn vs redo PVI / atypical AFL. R/B reviewed. Likely favors ablation but wants to consider this further. Seen proceeded with ablation - complex procedure: arrived to the electrophysiology lab in rate controlled atrial flutter. General anesthesia was induced, and the patient was prepped and draped in the usual sterile fashion. A Circa temperature probe was positioned into the esophagus to monitor esophageal temperatures during ablation. Under ultrasound guidance, intravascular sheaths were placed in each of the right (8Fr x2) and left (8Fr x1, 10Fr long x1) femoral veins. Under fluoroscopic guidance, via the left femoral vein, an intracardiac echo (ICE) probe was positioned in the right atrium and a decapolar catheter was positioned in the coronary sinus. Initial ICE survey showed left superior, left inferior, right superior and right inferior pulmonary veins with separate ostia. Ostial stenosis was noted in the LIPV at baseline. There was no pericardial effusion. The esophagus was midline. Heparin was initiated to maintain an ACT about 350 sec. A 3D electroanatomic voltage map of the RA was generated using CARTO mapping system and an Octaray mapping catheter. Significant scar was noted in the RA along the postero-lateral wall. The presenting atypical AFL (#1) had a CL 260 ms (distal to proximal CS activation) with a significant variation in CL was noted. LAT map was generated. Slow fractionated, near continuous potentials were noted in the posterior latera region of the RA scar, however this appear to be a region of passive conduction and not a location of AF driving an atypical AFL as it could not explain the lateral to proximal CS activation. We procced to map the LA. Under ICE and fluoroscopic guidance, via the right femoral vein two trans-septal accesses were obtained into the left atrium, using a [place] Versacross sheath and a deflectable Vizigo sheath. The VersaCross RF wire was used for both transseptal punctures. The AlmondNetaraEmu Messenger D-curve mapping catheter was advanced into the left atrium through the VersaCross sheath, and a 3.5mm externally irrigated, contact force-sensing ablation catheter (PlayPhoneco9Flava ST SF D/F curve) was advanced into the left atrium through the Agilis sheath. The AlmondNetaray catheter was then used to generate a 3D electroanatomic voltage maps of the left atrium and pulmonary veins with the CARTO mapping system while in AFL. All four PVs were isolated at baseline. The LIPV was small and partially stenosed at baseline, a known finding from prior CT scans. The posterior wall was electrically active at baseline. The AFL appeared to be macro-reentrant with a clockwise bucyk-mitral circuit going around the left sided veins via the LA roof. The prior left sided mitral isthmus line was incomplete. Ablation was performed delivering lesions connecting the anterior roof just in front of the STEW from the MV annual to the LSPV. This resulted in slight prolongation of the AFL from 260 msec to 290 msec.. A roof line was created from the LSPV to the RSPV resulting a a jump in the CL of the AFL out to 330 msec. Before re-mapping, we completed posterior wall isolation with a line of block from the LIPV to the RIPV. There was dissociated firing noted along the posterior wall. Esophageal heating was noted with this inferior line that was managed with lower power lesions of short duration. The AFL was remapped. Clockwise perimitral AFL was suggested, however the endo roof line appear blocked with the circuit jumping this line via Hodan's bundle and inserting into the anterior roof of the STEW. The insertion site was targeted resulting in slowing and termination of the AFL. Following termination we assess for epicardia roof / Hodan's bundle block. Conduction remained. Pacing in the STEW resulting in conduction both to the roof and the lateral LA. We attempted to further target the epicardial insertion site in to the STEW while pacing the LA roof. It appear to be a broad area of conduction. As such we targeted the lateral wall conduction from the STEW to the CS to complete the previous attempted lateral isthmus line. With ablation at the inferior margin of the STEW just posterior to the MV annual, lateral isthmus block was achieved with conduction time of > 200 msec and activation of the LA and CS from roof to septum, to prox CS then distal CS when pacing the STEW. Conduction into the STEW remained via Hodan's bundle. Burst pacing in the CS down to 220 msec repeated induced AF that would fail to organize to a stable AFL and quickly terminate. Last seen No recurrent events Record recurrences on or prior to the follow-up date but after the date of the previous follow-up (or after ablation date if this is the first follow-up) Palpitations: No AFib: No Aflutter: No AT or SVT: No Is patient currently in atrial fibrillation? No Arrhythmia recurrence beyond the blanking period: No One year success off AAD Yes TTE : - The left ventricle is normal in size. Left ventricular systolic function is normal. EF = 59 5% (2D biplane) Normal left ventricular diastolic function. - The right ventricle is normal in size. Right ventricular systolic function is normal. - The right atrial cavity is dilated. - 1+ MR. - Patient had frequent ectopy throughout exam. - Exam was compared with the prior echocardiographic exam performed on 09/20/2021. Interval improvement in LVEF on direct comparison. CHADS VASc - 2 - HTN and age - anticoagulant therapy with Xarelto 20 mg daily. Even though maintaining NSR - he is know to have significant scarring within the LA. AC is preferred. Apart from cost - he is content with this. May attempt to obtain from [facility] as [employer] is no longer supporting him on patient assistance program. Paper script provided. Annual follow up. This note was created with electronic dictation and errors in syntax and meaning may have occurred. Dileep Abernathy MD Pager: [phone] Office: [phone] I personally examined the patient and repeated the newell components of the exam and cardiac history, past medical and surgical history, social and family history. The assessment and plan were formulated and discussed with the patient and family. I spent over 25 minutes (face time) and greater than 50% of this time was spent counseling and/or coordinating the care of the patient with regard the diagnosis and medical regimen Referring Physician: David Woods MD [address] [facility] [address] [place] [address] documented in this encounter [facility] 04-30-2024 Note HNO ID: [id number] Author: DILEEP ABERNATYH MD Service: ? Author Type: Physician Type: Progress Notes Filed: 05/01/2024 11:30 Note Text: [facility] [place] [facility] Department of Cardiovascular Medicine SECTION OF CARDIAC PACING and ELECTROPHYSIOLOGY OUTPATIENT VISIT DATE April 30, 2024 OUTPATIENT VISIT TYPE ESTABLISHED PRIMARY CARE PHYSICIAN: David Woods [address] [facility] [address] [place] [address] NURSING INTAKE HISTORY: Mr. Root is a 69 year old male who presents today for a follow-up visit for atrial fibrillation. He has a past medical history of atrial fibrillation/flutter with a CTI ablation in 2007, pulmonary vein isolation in 2010, multiple DCCV. He was previously maintained on Flecainide and Metoprolol until 2020 when he developed AFL and required several cardioversions. He developed persistent AFL in associated with dyspnea and fatigue. He had a redo AF/AFL ablation 01/23/2023. His Flecainide was stopped in May 2023. He has done well since his last ablation without any known recurrence of his arrhythmia. He remains on Xarelto without any significant bleeding issues. Overall he is feeling well. CHADS2-Vasc Score Breakdown 1 Total Score 1 Age 65-74 years old PAST MEDICAL HISTORY Diagnosis Date Anxiety state, unspecified Atrial fibrillation (HCC) 01/01/2009 Atrial flutter (HCC) Diverticulosis of colon (without mention of hemorrhage) Osteoarthrosis, unspecified whether generalized or localized, lower leg Other forms of migraine, without mention of intractable migraine without mention of status migrainosus Personal history of colonic polyps Shingles PAST SURGICAL HISTORY Procedure Laterality Date AFIB PVI W/COMPL EP STUDY 2010 CARDIOVERSION multiple, last 04/09/18 PAST SURGICAL HISTORY OF 2007 Aflutter RFA CTI line PAST SURGICAL HISTORY OF 03/2007 foot surgery PT [facility] 01/23/2023 ablation SOCIAL HISTORY Social History Tobacco Use Smoking status: Former Current packs/day: 0.00 Types: Cigarettes Quit date: 02/12/1998 Years since quittin.2 Smokeless tobacco: Never Tobacco comments: Quit @ 10 years ago Vaping Use Vaping status: Never Used Substance Use Topics Alcohol use: No Drug use: No FAMILY HISTORY Problem Relation Age of Onset Stroke Mother d. age 70 Emphysema Father d age 68 None Sister Heart Brother d. age 46; SCD other (Other) Brother MS Blood Disease Son d. age 4; Leukemia ALLERGIES: ALLERGIES No Known Allergies MEDICATIONS: pantoprazole DR (PROTONIX) 20 mg tablet Take 20 mg by mouth once daily. rivaroxaban (XARELTO) 20 mg tablet Take 1 tablet by mouth daily with dinner. fluticasone (FLONASE) 50 mcg/actuation nasal spray USE 1 TO 2 SPRAY(S) IN EACH NOSTRIL ONCE DAILY multivit-mins no.63/iron/folic (M-VIT ORAL) Take by mouth. Iwoan Wise RN PHYSICAL EXAMINATION: BP 118/68 Ht 175.3 cm (5' 9) Wt 77.6 kg (171 lb) BMI 25.25 kg/m? CARDIOVASCULAR MEDICINE TESTING: EKG today: Echo: 05/11/2023 CONCLUSIONS: - Exam indication: Sustained atrial fibrillation - The left ventricle is normal in size. Left ventricular systolic function is normal. EF = 59 ? 5% (2D biplane) Normal left ventricular diastolic function. - The right ventricle is normal in size. Right ventricular systolic function is normal. - The right atrial cavity is dilated. - 1+ MR. - Patient had frequent ectopy throughout exam. - Exam was compared with the prior echocardiographic exam performed on 09/20/2021. Interval improvement in LVEF on direct comparison. EP STAFF NOTE: Please note: This note has been produced using speech recognition software and may contain errors related to that system including grammar, punctuation, spelling, gender and words and phrases that may be inappropriate Consultation initially requested by Dr. Chavira for an opinion regarding management of AF I have reviewed the above information and examined the patient and confirm the above with the following additions/modifications. Post DCC : PE: Vitals: BP 118/68 Ht 175.3 cm (5' 9) Wt 77.6 kg (171 lb) BMI 25.25 kg/m? General: Appears well nourished. In no acute distress. Lungs: Unlabored Heart: RRR Extremities: No peripheral edema bilaterally. PROBLEM LIST: patient of Dr. Chavira who was last seen on 11/04/2019 by Rea Hernandez CNP. HTN atrial fibrillation/flutter with a CTI ablation in 2007 pulmonary vein isolation in 2010, cardioversion on 11/04/2019. , . Patient has been on a rhythm controlling strategy with flecainide 150 mg twice daily as well as rate control with Lopressor 12.5 mg twice daily CHADS VASc - 2 - HTN and age - anticoagulant therapy with Xarelto 20 mg daily. JOSHUA : - The left ventricle is normal in size. Left ventricular systolic fun (more content not included)... [facility] 10-26-2023 Note HNO ID: [id number] Author: SELINA PARRISH APRN.MOE Service: ? Author Type: Nurse Practitioner Type: Progress Notes Filed: 10/26/2023 14:24 Note Text: [facility] [place] [facility] Department of Cardiovascular Medicine SECTION OF CARDIAC PACING and ELECTROPHYSIOLOGY OUTPATIENT VISIT DATE October 26, 2023 OUTPATIENT VISIT TYPE ESTABLISHED PRIMARY CARE PHYSICIAN: David Woods [address] [facility] [address] [place] [address] REFERRING PHYSICIAN: Dileep Abernathy [facility] [facility] [id number] CHIEF COMPLAINT: Atrial fibrillation HISTORY OF PRESENT ILLNESS: Mr. Root is a 68 year old male who presents today for follow-up visit for atrial fibrillation. He is an established patient of Dr. Abernathy last seen by Pardeep Martin on 05/11/2023. He has a past medical history of atrial fibrillation/flutter with a CTI ablation in 2007, pulmonary vein isolation in 2010, multiple DCCV. He was previously maintained on Flecainide and Metoprolol until 2020 when he developed AFL and required several cardioversions. He developed persistent AFL in associated with dyspnea and fatigue. He had a redo AF/AFL ablation with Dr. Abernathy on 01/23/2023. He continues to do well since his last visit without recurrences of atrial arrhythmias. He no longer taking Flecainide or Metoprolol. 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 He denies chest pain, shortness of breath, orthopnea, cough, edema, palpitations, PND, lightheadedness or syncope. PAST CARDIAC HISTORY: PAST MEDICAL HISTORY No date: Anxiety state, unspecified 01/01/2009: Atrial fibrillation (HCC) No date: Atrial flutter (HCC) No date: Diverticulosis of colon (without mention of hemorrhage) No date: Osteoarthrosis, unspecified whether generalized or localized, lower leg No date: Other forms of migraine, without mention of intractable migraine without mention of status migrainosus No date: Personal history of colonic polyps No date: ShinglesPAST SURGICAL HISTORY 2011: AFIB PVI W/COMPL EP STUDY No date: CARDIOVERSION Comment: multiple, last 04/09/182007: PAST SURGICAL HISTORY OF Comment: Aflutter RFA CTI line 03/2007: PAST SURGICAL HISTORY OF Comment: foot surgery 01/23/2023: PT [facility] VASCULAR Comment: ablation SOCIAL HISTORY Social History Tobacco Use Smoking status: Former Types: Cigarettes Quit date: 02/12/1998 Years since quittin.7 Smokeless tobacco: Never Tobacco comments: Quit @ 10 years ago Vaping Use Vaping Use: Never used Substance Use Topics Alcohol use: No Drug use: No FAMILY HISTORY Problem Relation Age of Onset Stroke Mother d. age 70 Emphysema Father d age 68 None Sister Heart Brother d. age 46; SCD other (Other) Brother MS Blood Disease Son d. age 4; Leukemia ALLERGIES: ALLERGIES No Known Allergies MEDICATIONS: rivaroxaban (XARELTO) 20 mg tablet Take 1 tablet by mouth daily with dinner. pantoprazole DR (PROTONIX) 40 mg tablet Take 1 tablet by mouth two times a day before meals at 6 am and 4 pm. metoprolol tartrate, short acting, (LOPRESSOR) 25 mg tablet Take 0.5 tablets by mouth once daily. fluticasone (FLONASE) 50 mcg/actuation nasal spray USE 1 TO 2 SPRAY(S) IN EACH NOSTRIL ONCE DAILY Ascorbic Acid 1,000 mg tablet Take by mouth. multivit-mins no.63/iron/folic (M-VIT ORAL) Take by mouth. REVIEW OF SYSTEMS: GENERAL: No weight loss, malaise or fevers RESPIRATORY: See HPI CARDIOVASCULAR: See HPI GI: No nausea, vomiting, or diarrhea MUSCULOSKELETAL: Negative for joint pain or swelling, back pain or muscle pain SKIN: Negative for lesions, rash, and itching PSYCH: Calm and cooperative. PHYSICAL EXAMINATION: There were no vitals taken for this visit. General Appearance: Well developed, well nourished, and No acute distress Lungs: CTAB; No crackles, rales, rhonchi or wheezes; Respiratory effort: normal Heart: Regular rate AND rhythm; No murmur: S1, S2; Edema: None; PT/Radial pulses: 2+ Skin: Warm, Dry, and Moist Musculoskeletal: No deformities; Steady gait Neurologic/Psychiatric: Oriented to time, place, person AND situation;No gross focal neurologic deficits Groin: Device pocket: CARDIOVASCULAR MEDICINE TESTING: Last ECHO Result Conclusion ECHO Collected: 05/11/2023 2:08 PM (Final result) Impression: CONCLUSIONS: - Exam indication: Sustained atrial fibrillation - The left ventricle is normal in size. Left ventricular systolic function is normal. EF = 59 ? 5% (2D biplane) Normal left ventricular diastolic function. - The right ventricle is normal in size. Right ventricular systolic function is normal. - The right atrial cavity is dilated. - 1+ MR. - Patient had frequent ectopy throughout exam. - Exam was compared with the prior echocardiographic exam performed on 09/20/2021. (more content not included)... [facility] 10-26-2023 History of Present illness Narrative Images from the original note were not included. [facility] [place] [facility] Department of Cardiovascular Medicine SECTION OF CARDIAC PACING and ELECTROPHYSIOLOGY OUTPATIENT VISIT DATE October 26, 2023 OUTPATIENT VISIT TYPE ESTABLISHED PRIMARY CARE PHYSICIAN: David Woods [address] [facility] [address] [place] [id number] REFERRING PHYSICIAN: Dileep Abernathy [address] [facility] [address] CHIEF COMPLAINT: Atrial fibrillation HISTORY OF PRESENT ILLNESS: Mr. Root is a 68 year old male who presents today for follow-up visit for atrial fibrillation. He is an established patient of Dr. Abernathy last seen by Pardeep Martin on 05/11/2023. He has a past medical history of atrial fibrillation/flutter with a CTI ablation in 2007, pulmonary vein isolation in 2010, multiple DCCV. He was previously maintained on Flecainide and Metoprolol until 2020 when he developed AFL and required several cardioversions. He developed persistent AFL in associated with dyspnea and fatigue. He had a redo AF/AFL ablation with Dr. Abernathy on 01/23/2023. He continues to do well since his last visit without recurrences of atrial arrhythmias. He no longer taking Flecainide or Metoprolol. 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 He denies chest pain, shortness of breath, orthopnea, cough, edema, palpitations, PND, lightheadedness or syncope. PAST CARDIAC HISTORY: PAST MEDICAL HISTORY No date: Anxiety state, unspecified 01/01/2009: Atrial fibrillation (HCC) No date: Atrial flutter (HCC) No date: Diverticulosis of colon (without mention of hemorrhage) No date: Osteoarthrosis, unspecified whether generalized or localized, lower leg No date: Other forms of migraine, without mention of intractable migraine without mention of status migrainosus No date: Personal history of colonic polyps No date: ShinglesPAST SURGICAL HISTORY 2010: AFIB PVI W/COMPL EP STUDY No date: CARDIOVERSION Comment: multiple, last 04/09/182007: PAST SURGICAL HISTORY OF Comment: Aflutter RFA CTI line 03/2007: PAST SURGICAL HISTORY OF Comment: foot surgery 01/23/2023: PT ED [facility]ART [facility] VASCULAR Comment: ablation SOCIAL HISTORY Social History Tobacco Use Smoking status: Former Types: Cigarettes Quit date: 02/12/1998 Years since quittin.7 Smokeless tobacco: Never Tobacco comments: Quit @ 10 years ago Vaping Use Vaping Use: Never used Substance Use Topics Alcohol use: No Drug use: No FAMILY HISTORY Problem Relation Age of Onset Stroke Mother d. age 70 Emphysema Father d age 68 None Sister Heart Brother d. age 46; SCD other (Other) Brother MS Blood Disease Son d. age 4; Leukemia ALLERGIES: ALLERGIES No Known Allergies MEDICATIONS: rivaroxaban (XARELTO) 20 mg tablet Take 1 tablet by mouth daily with dinner. pantoprazole DR (PROTONIX) 40 mg tablet Take 1 tablet by mouth two times a day before meals at 6 am and 4 pm. metoprolol tartrate, short acting, (LOPRESSOR) 25 mg tablet Take 0.5 tablets by mouth once daily. fluticasone (FLONASE) 50 mcg/actuation nasal spray USE 1 TO 2 SPRAY(S) IN EACH NOSTRIL ONCE DAILY Ascorbic Acid 1,000 mg tablet Take by mouth. multivit-mins no.63/iron/folic (M-VIT ORAL) Take by mouth. REVIEW OF SYSTEMS: GENERAL: No weight loss, malaise or fevers RESPIRATORY: See HPI CARDIOVASCULAR: See HPI GI: No nausea, vomiting, or diarrhea MUSCULOSKELETAL: Negative for joint pain or swelling, back pain or muscle pain SKIN: Negative for lesions, rash, and itching PSYCH: Calm and cooperative. PHYSICAL EXAMINATION: There were no vitals taken for this visit. General Appearance: Well developed, well nourished, and No acute distress Lungs: CTAB; No crackles, rales, rhonchi or wheezes; Respiratory effort: normal Heart: Regular rate & rhythm; No murmur: S1, S2; Edema: None; PT/Radial pulses: 2+ Skin: Warm, Dry, and Moist Musculoskeletal: No deformities; Steady gait Neurologic/Psychiatric: Oriented to time, place, person & situation;No gross focal neurologic deficits Groin: Device pocket: CARDIOVASCULAR MEDICINE TESTING: Last ECHO Result Conclusion ECHO Collected: 05/11/2023 2:08 PM (Final result) Impression: CONCLUSIONS: - Exam indication: Sustained atrial fibrillation - The left ventricle is normal in size. Left ventricular systolic function is normal. EF = 59 5% (2D biplane) Normal left ventricular diastolic function. - The right ventricle is normal in size. Right ventricular systolic function is normal. - The right atrial cavity is dilated. - 1+ MR. - Patient had frequent ectopy throughout exam. - Exam was compared with the prior echocardiographic exam performed on 09/20/2021. Interval improvement in LVEF on direct comparison. * * * Final * * * Last EKG Result Conclusion ECG COMPLETE Collected: 10/26/2023 12:18 PM (Preliminary result) Impression: SINUS BRADYCARDIA OTHERWISE NORMAL ECG IMPRESSION: Mr. Root is a 68 year old male with medical history of atrial fibrillation/flutter with a CTI ablation in 2007, pulmonary vein isolation in 2010, multiple DCCV. He was previously maintained on Flecainide and Metoprolol until 2020 when he developed AFL and required several cardioversions. He developed persistent AFL in associated with dyspnea and fatigue. He had a redo AF/AFL ablation with Dr. Abernathy on 01/23/2023. PLAN AND RECOMMENDATIONS: Atrial fibrillation - s/p CTI 2007, PVI 2010, and redo AF/AFL ablation 01/23/2023 - No known arrhythmia recurrences since ablation - He is maintained on Xarelto, tolerating without major bleeding or missed doses - Presents today in asymptomatic sinus bradycardia - Last echo on 05/11/2023 showed improved LVEF 59% from 50% (09/20/21) CHADS2-Vasc Score Breakdown 1 Total Score 1 Age 65-74 years old GERD - Improved control on Protonix 10 mg BID Keep scheduled appointment with Dr. Abernathy in 04/2024 Selina Parrish APRN.MOE CONTACT INFORMATION: Dr. Dilepe Abernathy To schedule an appointment please call [phone] Other questions or concerns please call his office at [phone] documented in this encounter [facility] 09-14-2023 Telephone encounter Note Call from patient requesting refill. Requested Prescriptions Pending Prescriptions Disp Refills rivaroxaban (XARELTO) 20 mg tablet 90 tablet 3 Sig: Take 1 tablet by mouth daily with dinner. Patient last seen 05/11/23 By: ROMAN Harley [facility] 09-14-2023 Miscellaneous Notes Call from patient requesting refill. Requested Prescriptions Pending Prescriptions Disp Refills rivaroxaban (XARELTO) 20 mg tablet 90 tablet 3 Sig: Take 1 tablet by mouth daily with dinner. Patient last seen 05/11/23 By: ROMAN Harley documented in this encounter [facility] 05-11-2023 Instructions Rosa Isela Martin APRN.CNP - 05/11/2023 12:27 PM EST You may stop your flecainide. Follow up with Dr. Abernathy in January. Dr. Dileep Abernathy's office To schedule an appointment please call -- [phone] Other questions or concerns please call his office at [phone] Fax#: [phone] documented in this encounter [facility] 05-11-2023 History of Present illness Narrative Images from the original note were not included. [facility] [place] [facility] Department of Cardiovascular Medicine SECTION OF CARDIAC PACING and ELECTROPHYSIOLOGY OUTPATIENT VISIT DATE May 11, 2023 OUTPATIENT VISIT TYPE ESTABLISHED PRIMARY CARE PHYSICIAN: David Woods [address] [place] [address] CHIEF COMPLAINT: Atrial fibrillation HISTORY OF PRESENT ILLNESS: Mr. Root is a 68 year old male who presents today for follow-up visit for atrial fibrillation. He is an established patient of Dr. Abernathy - last seen 06/05/22. He has a medical history significant for atrial fibrillation/flutter with a CTI ablation in 2007, pulmonary vein isolation in 2010, multiple DCCV. Patient has been on a rhythm controlling strategy with flecainide 150 mg twice daily as well as rate control with Lopressor 12.5 mg twice daily as well as anticoagulant therapy with Xarelto 20 mg daily. He had been doing well until 2020 when he developed recurrent AFL requiring several DCCVs. He then developed persistent AFL on 12/15/21. He notes GU, fatigue and imbalance when in AFL. He is now s/p redo ablation on 01/23/[address] Abernathy. TTMs reviewed and all show SR. He presents today in SB (hr 45). He reports an improvement in symptoms since his ablation and he has been without AF recurrence. He denies chest pain, shortness of breath, orthopnea, cough, edema, palpitations, PND, lightheadedness or syncope. PAST CARDIAC HISTORY: PAST MEDICAL HISTORY Diagnosis Date Anxiety state, unspecified Atrial fibrillation (HCC) 01/01/2009 Atrial flutter (HCC) Diverticulosis of colon (without mention of hemorrhage) Osteoarthrosis, unspecified whether generalized or localized, lower leg Other forms of migraine, without mention of intractable migraine without mention of status migrainosus Personal history of colonic polyps Shingles PAST SURGICAL HISTORY Procedure Laterality Date AFIB PVI W/COMPL EP STUDY 2011 CARDIOVERSION multiple, last 04/09/18 PAST SURGICAL HISTORY OF 2007 Aflutter RFA CTI line PAST SURGICAL HISTORY OF 03/2007 foot surgery PT ED HEART AND VASCULAR 01/23/2023 ablation SOCIAL HISTORY Social History Tobacco Use Smoking status: Former Types: Cigarettes Quit date: 02/12/1998 Years since quittin.2 Smokeless tobacco: Never Tobacco comments: Quit @ 10 years ago Vaping Use Vaping Use: Never used Substance Use Topics Alcohol use: No Drug use: No FAMILY HISTORY Problem Relation Age of Onset Stroke Mother d. age 70 Emphysema Father d age 68 None Sister Heart Brother d. age 46; SCD other (Other) Brother MS Blood Disease Son d. age 4; Leukemia ALLERGIES: ALLERGIES No Known Allergies MEDICATIONS: pantoprazole DR (PROTONIX) 40 mg tablet Take 1 tablet by mouth two times a day before meals at 6 am and 4 pm. metoprolol tartrate, short acting, (LOPRESSOR) 25 mg tablet Take 0.5 tablets by mouth once daily. rivaroxaban (XARELTO) 20 mg tablet Take 1 tablet by mouth daily with dinner. fluticasone (FLONASE) 50 mcg/actuation nasal spray USE 1 TO 2 SPRAY(S) IN EACH NOSTRIL ONCE DAILY Ascorbic Acid 1,000 mg tablet Take by mouth. multivit-mins no.63/iron/folic (M-VIT ORAL) Take by mouth. REVIEW OF SYSTEMS: GENERAL: Negative for: Weight loss or gain, Fever or Chills, Weakness and Sleep difficulties. HEENT: Negative for: Headache, Impaired Vision, Hearing Impairment, Ringing in Ears, Nosebleeds, Poor dental care, Bleeding Gums, Dentures NECK: Negative for: Swelling, Pain, Stiffness RESPIRATORY: Negative for: Cough, Blood in Sputum, Shortness of breath, Wheezing, Apnea GASTROINTESTINAL: Negative for: Trouble swallowing, Heartburn, Change in bowel habits, Blood in stool, Dark black stools MUSCULOSKELETAL: Negative for: Muscle or joint pain, Stiffness , Joint swelling NEUROLOGIC/PSYCHIATRIC: Negative for: Weakness, Paralysis, Numbness, Tingling, Tremor, Nervousness, Depressed mood, Memory loss SKIN: Negative for: Rashes, Itching HEMATOLOGICAL/LYMPHATIC: Negative for: Easy bruising , Easy bleeding ENDOCRINE: Negative for: Heat or cold intolerance, Excessive sweating, Frequent urination, Frequent thirst PHYSICAL EXAMINATION: BP 122/70 Pulse (!) 45 Ht 175.3 cm (5' 9) Wt 85.7 kg (189 lb) BMI 27.91 kg/m General: Well appearing, in no acute distress. Neck: No jugular venous distention, no carotid bruits, carotids have a normal upstroke, no palpable thyromegaly. Lungs: Clear to auscultation bilaterally, no wheezing or rhonchi. Heart: Regular rhythm, PMI not displaced, S1, S2 normal, no S3, no S4, no heaves, no rub and no murmur. Abdomen: Soft, nontender, bowel sounds normal, no palpable organomegaly, no bruits. Extremities: No peripheral edema . Grade 2/4 distal pulses bilaterally. Neuro: Oriented to person, place and time, alert, cooperative, gait coordinated. CARDIOVASCULAR MEDICINE TESTING: Last EKG Result Conclusion ECG COMPLETE Collected: 05/11/2023 11:32 AM (Preliminary result) Impression: SINUS BRADYCARDIA OTHERWISE NORMAL ECG IMPRESSION: Mr. Root is a 68 year old male who presents today for follow-up visit for atrial fibrillation. He is an established patient of Dr. Abernathy - last seen 06/05/22. He has a medical history significant for atrial fibrillation/flutter with a CTI ablation in 2007, pulmonary vein isolation in 2010, multiple DCCV. Atrial fibrillation/flutter - S/p CTI ablation in 2007 - S/p PVI in 2010 - S/p multiple DCCV - Symptomatic with GU, fatigue and imbalance - Maintained on flecainide 150 mg BID, Lopressor 12.5 mg daily - He is now s/p redo ablation on 01/23/[address] Abernathy - TTMs reviewed and all show SR - ECG today: SB (hr 45) - LVEF 50% (09/20/21) - repeat echo to be completed later today Anticoagulation - Stroke prophylaxis - On Xarelto - Denies missed doses or bleeding events CHADS2-Vasc Score Breakdown 1 Total Score 1 Age 65-74 years old PLAN AND RECOMMENDATIONS: Discussed with Dr. Abernathy - OK to stop Flecainide Follow up with Dr. Abernathy in January Echo to be completed today as scheduled CONTACT INFORMATION: Rosa Isela Martin APRN.CNP documented in this encounter [facility] 04-27-2023 Miscellaneous Notes Call from patient requesting refill. Requested Prescriptions Pending Prescriptions Disp Refills pantoprazole DR (PROTONIX) 40 mg tablet 180 tablet 0 Sig: Take 1 tablet by mouth two times a day before meals at 6 am and 4 pm. Patient last seen 06/05/22 By: Dr. Josemanuel Marshall documented in this encounter [facility] 02-20-2023 History of Present illness Narrative Initial Podiatric Office Visit: Chief Complaint: This 67 year old male who presents with chief complaint:right foot pain HPI Patient presents to clinic for evaluation of right foot Has pain in the ball of right foot that has been bothering him for several years. Feels like he is walking on a golf ball Hurts more when he is barefoot Has used orthotics which does provide some relief. Has been putting this off to address other medical issues. PAIN EVALUATION 02/20/2023 1116 Pain Level: 8 Pain Location: Foot-Right Frequency: Intermittent Comments: 10/19 pain rtgoot bigtoe while abulating without shoes Hemoglobin A1C (%) Date Value 03/25/2010 5.6 PCP: David Woods MD PAST MEDICAL HISTORY Diagnosis Date Anxiety state, unspecified Atrial fibrillation (HCC) 01/01/2009 Atrial flutter (HCC) Diverticulosis of colon (without mention of hemorrhage) Osteoarthrosis, unspecified whether generalized or localized, lower leg Other forms of migraine, without mention of intractable migraine without mention of status migrainosus Personal history of colonic polyps Shingles Current Outpatient Medications Medication Sig pantoprazole DR (PROTONIX) 40 mg tablet Take 1 tablet by mouth two times a day before meals at 6 am and 4 pm. metoprolol tartrate, short acting, (LOPRESSOR) 25 mg tablet Take 0.5 tablets by mouth once daily. rivaroxaban (XARELTO) 20 mg tablet Take 1 tablet by mouth daily with dinner. flecainide (TAMBOCOR) 150 mg tablet Take 1 tablet by mouth q 12 HR. fluticasone (FLONASE) 50 mcg/actuation nasal spray USE 1 TO 2 SPRAY(S) IN EACH NOSTRIL ONCE DAILY Ascorbic Acid 1,000 mg tablet Take by mouth. multivit-mins no.63/iron/folic (M-VIT ORAL) Take by mouth. No current facility-administered medications for this visit. ALLERGIES No Known Allergies PAST SURGICAL HISTORY Procedure Laterality Date AFIB PVI W/COMPL EP STUDY 2010 CARDIOVERSION multiple, last 04/09/18 PAST SURGICAL HISTORY OF 2007 Aflutter RFA CTI line PAST SURGICAL HISTORY OF 03/2007 foot surgery PT [facility] 01/23/2023 ablation FAMILY HISTORY Problem Relation Age of Onset Stroke Mother d. age 70 Emphysema Father d age 68 None Sister Heart Brother d. age 46; SCD other (Other) Brother MS Blood Disease Son d. age 4; Leukemia Social History Tobacco Use Smoking status: Former Types: Cigarettes Quit date: 02/12/1998 Years since quittin.0 Smokeless tobacco: Never Tobacco comments: Quit @ 10 years ago Vaping Use Vaping Use: Never used Substance Use Topics Alcohol use: No Drug use: No REVIEW OF SYSTEMS GENERAL: Negative for Malaise, significant weight loss, fever RESPIRATORY: Negative for cough, wheezing and shortness of breath CARDIOVASCULAR: Negative for chest pain, leg swelling and palpitations GI: Negative for abdominal discomfort, blood in stools or black stools and change in bowel habits : Negative for dysuria, frequency and incontinence MUSCULOSKELETAL: Negative for joint pain or swelling, back pain, and muscle pain. SKIN: Negative for lesions, rash, and itching. HEMATOLOGY/LYMPHOLOGY Negative for prolonged bleeding, bruising easily, and swollen nodes. ENDOCRINE: Negative for cold or heat intolerance, polyuria, polydipsia and goiter. NEURO: negative Physical Exam: Constitutional: Pt is a well developed 67 year old male who is alert, oriented and cooperative Eyes: Following during examination. No redness or drainage. Respiratory: RR normal and nonlabored. Even breathing. No evidence of distress or shortness of breath. Psychology: Patient is engaged during conversation. Normal affect and mood. Does not appear depressed or anxious during encounter. Vascular: Dorsalis pedis and posterior tibial pulses palpable as b/l Capillary Fill time < 5 seconds to digits 1-5 b/l Skin temperature warm to warm proximal to distal b/l Hair growth present to digits Neurological: intact light touch/epicritic sensation b/l intact protective sensation no significant neurological deficits Dermatological: Nails 1-5 b/l appear normal. Webspaces clean and dry 1-4 b/l. Skin appears well hydrated and supple. good color, texture, turgor. No open lesions present. No callosities present. Musculoskeletal/Orthopaedic: Patient has pain to palpation of right 2nd interspace Foot type is neutral structurally AJ ROM is full with knee extended and flexed 1st MPJ is decreased when loaded and mild pain or crepitus are noted with ROM. MTJ, STJ are full and free of pain and crepitus. +5/5 muscle strength dorsiflexion, plantarflexion, inversion, eversion b/l Radiographs: 3 views right foot ordered February 20, 2023: I have personally reviewed and interpreted these XR myself: no acute fracture. 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 History and physical examination performed. 2. XR reviewed with patient and interpreted today. He has severe arthritis in great toe joint and medial deviation of 2nd toe 3. Discussed clinical exam and xrays. His pain is either neuroma vs plantar plate attenuation. He describes pain that is like walking on a marble, worse when barefoot. This would support neuroma. He has arthritis of great toe likely leading to overload of the 2nd mtpj with resulting medial deviation of 2nd toe. This would support plantar plate attenuation. He has mild pain. Options include continued use of orthotics with ho extension, trying diagnostic block vs steroid injection. If pain continues, could consider mri for evaluation of plantar plate 4. At this time, he has elected to use custom orthotics. I am going to order custom orthotics with ho extension. These are better than an over the counter device as they will help to limit motion in the great toe. If pain fails to improve, consider mri Rai Ferguson DPM Podiatry [address] [facility] [address] Dept: [phone] Dept AMB ROOMING INTAKE FLOWSHEET DATA Risk Screening Do you have concerns about personal safety or safety in the home?: No Pain Pain Level: 8 Pain Location: Foot-Right Frequency: Intermittent Comments: 8/10 pain rtgoot bigtoe while abulating without shoes Patient presents with: Right Foot - New, Pain: Right foot big pain Pt c/o pain on great toe 8/10 when ambulating without a shoe. Pt had xray today. documented in this encounter [facility] 02-20-2023 History of Present illness Narrative Radiology Service Progress Note PATIENT NAME: Tonya Root DATE OF SERVICE: February 20, 2023 TIME: 11:17 AM PATIENT IDENTITY VERIFICATION COMPLETED USING TWO (2) IDENTIFIERS: Name and Date of confirmed by patient verbally. FALL SCREENING: Has the patient had 2 falls in the last year or 1 fall with injury or currently using an Ambulatory Assistive Device (Walker, Cane, Wheelchair, Crutches, etc.)? No PATIENT GENDER DATA: Male PATIENT RELEVANT IMPLANT DATA REVIEWED: Not Applicable RADIOLOGY DEPARTMENT: General X-ray: Exam(s) Completed: Lower Extremity X-Ray(s): Foot, Right and Wt. Bearing PERIPHERAL IV DATA: Not applicable SIGNED BY: RT Chepe(R) February 20, 2023 11:17 AM documented in this encounter [facility] 02-14-2023 History of Present illness Narrative Follow up documented in this encounter [facility] 01-26-2023 Miscellaneous Notes [facility] Contact Center Inbound Phone Encounter DATE of SERVICE: 01/26/2023 TIME of SERVICE: 5:05 PM Status: FYI Service/Provider: EP/EPS Dileep Abernathy M.D. Reason for call: Other Issue Contact information: pt Resolution: Emergent referral to local ED Comments: Pt and called the [facility] phone line. Pt has not had a bowel movement since Sunday. He is unable to eat, feels like he's ate two turkey dinners. He is not passing any gas. He is only having sips of water. They have tried ducolax, and remedies but nothing is working. I advised to go to ED for evaluation. He is going to [facility]. Guillermina Donahue RN Date of Resolution: 01/26/2023 Time of Resolution 5:05 PM documented in this encounter [facility] 01-25-2023 Miscellaneous Notes [facility] Contact Center Inbound Phone Encounter DATE of SERVICE: 01/25/2023 TIME of SERVICE: 1:52 PM Status: FYI Service/Provider: EP/EPS Reason for call: Patient has concerns with slight swelling to his feet. Denies weight gain or shortness of breath. In addition, he has not had bowel movement since Sunday. States that he is not uncomfortable. Took ducalox today, with no results. Discussed use of fiber supplement, if necessary. Reviewed all priority symptoms. Patient verbalizes understanding and will call back with further questions or concerns Resolution: Reinforced education Stella Overton RN Date of Resolution: 01/25/2023 Time of Resolution 1:52 PM documented in this encounter [facility] 11-08-2022 Miscellaneous Notes The date of 01/23/23 with offered & accepted by patient. Needs OPD, ECG & Labs (CBC,BMP,T&S) one day prior to procedure date - please schedule appointments after 10 am. Per patient, takes Xarelto 20 mg x once daily in pm. Per Dr. Abernathy, instructed patient to take Xarelto at noon the day prior to procedure. Patient stated understanding. ----- Message from Dileep Abernathy MD sent at 11/02/2022 2:52 PM EDT ----- please schedule for redo PVI CARTO GA Hold AM eliquis ok to continue Flecainide thanks bb documented in this encounter [facility] 10-24-2022 Miscellaneous Notes October 24, 2022 Patient Contact Number: [phone] and [phone] Patient last seen within the last year: Yes 06/01 Reason For Call: Medication Issue/Question: Patient would like his Metoprolol refilled the correct way. 1/2 tablet once per day. He doesn't want to cut 25 mg in half. Patient is also ready for an Ablation. Physician:Dileep Abernathy MD Patient was informed that non-urgent calls may be returned within the next three business days. Yes Louisa Marshall documented in this encounter [facility] 09-05-2022 Miscellaneous Notes Call from pharmacy requesting refill. Requested Prescriptions Pending Prescriptions Disp Refills rivaroxaban (XARELTO) 20 mg tablet 90 tablet 3 Sig: Take 1 tablet by mouth daily with dinner. [facility] 06-16-2022 Miscellaneous Notes Call from pharmacy requesting refill. Requested Prescriptions Pending Prescriptions Disp Refills flecainide (TAMBOCOR) 150 mg tablet [Pharmacy Med Name: FLECAINIDE ACETATE 150 MG TAB] 180 tablet 3 Sig: Take 1 tablet by mouth q 12 HR. Patient last seen 06/05/22 Louisa Marshall documented in this encounter [facility] 06-05-2022 History of Present illness Narrative Images from the original note were not included. [facility] [place] Violeta Ingram Department of Cardiovascular Medicine SECTION OF CARDIAC PACING and ELECTROPHYSIOLOGY OUTPATIENT VISIT DATE June 05, 2022 OUTPATIENT VISIT TYPE ESTABLISHED PRIMARY CARE PHYSICIAN: David Woods [address] [place] [address] NURSING INTAKE HISTORY: Mr. Root is a 67 year old male who presents today for follow-up visit atrial flutter. He was previously established with Dr Chavira. He has a medical history significant for atrial fibrillation/flutter with a CTI ablation in 2007, pulmonary vein isolation in 2010, and most recent cardioversion on 11/04/2019. Patient has been on a rhythm controlling strategy with flecainide 150 mg twice daily as well as rate control with Lopressor 12.5 mg twice daily as well as anticoagulant therapy with Xarelto 20 mg daily. He was last seen in office in 2019 at which time he was doing well without any recurrent AFib/AFL. He has since developed recurrent AFL requiring DCC 09/29, 03/01 and most recently 10/07/21. He has remained on Flecainide 150mg BID. He developed recurrent AFL on 12/15/21 and has remained in this since. He notes GU, fatigue and imbalance when in AFL. Prior discussion of Tikosyn vs redo ablation were discussed. He presents today to further review. Echo 09/30 showed his LVEF at 50%. LA is severely dilated. CHADS2-Vasc Score Breakdown 1 Total Score 1 Age 65-74 years old PAST MEDICAL HISTORY Diagnosis Date Anxiety state, unspecified Atrial fibrillation (HCC) 01/01/2009 Atrial flutter (HCC) Diverticulosis of colon (without mention of hemorrhage) Osteoarthrosis, unspecified whether generalized or localized, lower leg Other forms of migraine, without mention of intractable migraine without mention of status migrainosus Personal history of colonic polyps Shingles PAST SURGICAL HISTORY Procedure Laterality Date AFIB PVI W/COMPL EP STUDY 2011 CARDIOVERSION multiple, last 04/09/18 PAST SURGICAL HISTORY OF 2007 Aflutter RFA CTI line PAST SURGICAL HISTORY OF 03/19 foot surgery SOCIAL HISTORY Social History Tobacco Use Smoking status: Former Types: Cigarettes Quit date: 02/12/1998 Years since quittin.3 Smokeless tobacco: Never Tobacco comments: Quit @ 10 years ago Vaping Use Vaping Use: Never used Substance Use Topics Alcohol use: No Drug use: No FAMILY HISTORY Problem Relation Age of Onset Stroke Mother d. age 70 Heart Brother d. age 46; SCD Emphysema Father d age 68 Blood Disease Son d. age 4; Leukemia other (Other) Brother MS None Sister ALLERGIES: ALLERGIES No Known Allergies MEDICATIONS: metoprolol tartrate, short acting, (LOPRESSOR) 25 mg tablet^Take 1 tablet by mouth twice daily.^Disp: 45 tablet^Rfl: 3 fluticasone (FLONASE) 50 mcg/actuation nasal spray^USE 1 TO 2 SPRAY(S) IN EACH NOSTRIL ONCE DAILY^Disp: ^Rfl: Ascorbic Acid 1,000 mg tablet^Take by mouth.^Disp: ^Rfl: multivit-mins no.63/iron/folic (M-VIT ORAL)^Take by mouth.^Disp: ^Rfl: OTC NUTRITIONAL SUPPLEMENT^collagen peptides^Disp: ^Rfl: rivaroxaban (XARELTO) 20 mg tablet^Take 1 tablet by mouth daily with dinner.^Disp: 90 tablet^Rfl: 3 flecainide (TAMBOCOR) 150 mg tablet^Take 1 tablet by mouth q 12 HR.^Disp: 180 tablet^Rfl: 3 Iwona Wise RN PHYSICAL EXAMINATION: There were no vitals taken for this visit. CARDIOVASCULAR MEDICINE TESTING: EKG today: Echo: 09/20/21 CONCLUSIONS: - Exam indication: AFIB - The left ventricle is normal in size. Left ventricular systolic function is mildly decreased. EF = 50 5% (2D biplane) Grade II left ventricular diastolic dysfunction. - The right ventricle is normal in size. Right ventricular systolic function is normal. - The left atrial cavity is severely dilated. - Mild (1+) MR. - Mild (1+) TR. - Estimated right ventricular systolic pressure is 46 mmHg consistent with mild pulmonary hypertension. Estimated right atrial pressure is 3 mmHg (although IVC not seen). - Exam was compared with the prior echocardiographic exam performed on 06/10/2015 (JOSHUA). Prior EF was 55%. EP STAFF NOTE: Please note: This note has been produced using speech recognition software and may contain errors related to that system including grammar, punctuation, spelling, gender and words and phrases that may be inappropriate Consultation initially requested by Dr. Chavira for an opinion regarding management of AF I have reviewed the above information and examined the patient and confirm the above with the following additions/modifications. Post [facility] : PE: Vitals: BP 122/76 Pulse 61 Ht 175.3 cm (5' 9) Wt 86.2 kg (190 lb) BMI 28.06 kg/m General: Appears well nourished. In no acute distress. Lungs: Unlabored Heart: RRR - in AFL with 3:1 AVB Extremities: No peripheral edema bilaterally. PROBLEM LIST: patient of Dr. Chavira who was last seen on 11/04/2019 by Rea Hernandez CNP. HTN atrial fibrillation/flutter with a CTI ablation in 2007 pulmonary vein isolation in 2010, cardioversion on 11/04/2019. , . Patient has been on a rhythm controlling strategy with flecainide 150 mg twice daily as well as rate control with Lopressor 12.5 mg twice daily CHADS VASc - 2 - HTN and age - anticoagulant therapy with Xarelto 20 mg daily. JOSHUA : - The left ventricle is normal in size. Left ventricular systolic function is normal. EF = 55 5% (visual est.) - The right ventricle is normal in size. Right ventricular systolic function is normal. - The left atrial cavity is dilated. - There is no patent foramen ovale as detected by Doppler and saline contrast. - There is no LA/ LA appendage thrombi visualized. - No significant valvular abnormalities. - Exam was compared with the prior CC echocardiographic exam performed on 01/18/2010. Comparable findings. rate related RBBB Cardiac CT 2010: IMPRESSION: 1. The left atrium receives 4 pulmonary veins. First branch of the right lower pulmonary vein appears severely narrowed at its ostium. Left lower pulmonary vein shows mild wall thickening with minimal luminal narrowing and compression from descending aorta (5 x 17 mm). There is a posterior mediastinal vein which drains into right middle pulmonary vein. The right middle vein is a branch of the right superior pulmonary vein. 2. No left atrial or left atrial appendage thrombus. IMPRESSION / PLAN: 67 y/o with recurrent persistent, symptomatic AF despite prior CTI RFA 2007 and PVI 2010. He has mild LIPV stenosis. Not immediately aware of AF - but more fatigued / SOB when in a persistent event. Can tele in AF by increase in HR on home checks. He has required multiple cardioversion in the past year despite ongoing therapy with high dose Flecainide and BB. [facility] 11/04/2019. , . LA was significantly enlarged by CT 2010 Referred to me - VV at that time d/t weather. Reviewed additional rhythm control options - switch to Tikosyn versus redo PVI. R/B reviewed. Wanted to defer a change in management until event rate worsens. Seen -in AFL with a controlled V rate at 75 bpm. Could tell by his VS checks that he developed recurrent AF / AFL 09-12-21. Feels more fatigued in AFL. Remains on high dose Flec, metoprolol and xarelto as prescribed by Dr. Fan. TTE updated : - The left ventricle is normal in size. Left ventricular systolic function is mildly decreased. EF = 50 5% (2D biplane) Grade II left ventricular diastolic dysfunction. - The right ventricle is normal in size. Right ventricular systolic function is normal. - The left atrial cavity is severely dilated. - Mild (1+) MR. - Mild (1+) TR. - Estimated right ventricular systolic pressure is 46 mmHg consistent with mild pulmonary hypertension. Estimated right atrial pressure is 3 mmHg (although IVC not seen). - Exam was compared with the prior echocardiographic exam performed on 06/10/2015 (JOSHUA). Prior EF was 55%. Reviewed management options - includng switching to rate control versus additional rhythm control management with DCC as needed, versus switch to Tikosyn versus redo PVI and atypical AFL RFA. DCC 10-07-21 He developed recurrent AFL on 12/15/21 and has remained in this since. He notes GU, fatigue and imbalance when in AFL. Re-reviewed Tikosyn vs redo PVI / atypical AFL. R/B reviewed. Likely favors ablation but wants to consider this further. EKG today: Will call with decision. If ablation - continue Flec. If switch to Tikosyn - stop Flec at least 4 days prior. This note was created with electronic dictation and errors in syntax and meaning may have occurred. Dileep Abernathy MD Pager: [phone] Office: [phone] I personally examined the patient and repeated the newell components of the exam and cardiac history, past medical and surgical history, social and family history. The assessment and plan were formulated and discussed with the patient and family. I spent over 25 minutes (face time) and greater than 50% of this time was spent counseling and/or coordinating the care of the patient with regard the diagnosis and medical regimen Referring Physician: David Woods MD [address] [place] [address] documented in this encounter [facility] 02-24-2022 Miscellaneous Notes Patient returning call. Louisa Marshall Called patient, vm left. Terri Rome RN Just spoke with patient's spouse and she has some concerns about the Metoprolol instructions that was given. Please call: [phone]. Louisa Marshall documented in this encounter [facility] 02-20-2022 Miscellaneous Notes Call from pharmacy requesting refill. Requested Prescriptions Pending Prescriptions Disp Refills metoprolol tartrate, short acting, (LOPRESSOR) 25 mg tablet [Pharmacy Med Name: Metoprolol Tartrate 25 MG Oral Tablet] 45 tablet 3 Sig: Take 1 tablet by mouth twice daily. Patient last seen 01/07/20 By: Dr. Fan Marshall documented in this encounter [facility] 02-20-2022 Miscellaneous Notes February 20, 2022 Patient Contact Number: [phone] Patient last seen within the last year: YES. 09/26/21 Reason For Call: Back in [facility] Physician:Dileep Abernathy MD Patient was informed that non-urgent calls may be returned within the next two business days. Yes Louisa Marshall documented in this encounter [facility] 10-04-2021 History of Present illness Narrative THE FOLLOWING WAS EVALUATED Motivation To Learn: Interested Family/Significant Other Support: Unable to assess - Family not present Cognitive Ability: Alert and oriented Patient Learns Best By: Individual Instruction The Following Influencing Factors Were Barriers To This Education Session: None The Following Physical Limitations Were Barriers To This Education Session: None Instruction Provided To: Patient Procedure: Cardioversion Pre-procedure information reviewed: Patient ID verified Procedure verified Physician verified Explanation of procedure Sedation level during procedure MD medication instructions from EP lab request None: patient denies missing any doses of Xarelto in the past 21 days. Travel instructions/restrictions Scheduling information Possible same day discharge versus overnight hospital stay Check out time Family waiting area Physician contact with family after procedure Post Procedure Expectations reviewed: Inpatient hospital stay Post procedure antiarrhythmics and anticoagulation will be discussed with Physician, nurse practitioner or Physician yard assistant upon discharge Instructions for transmitting EKG to Monitoring Center 3 month follow up instructions Contact number for information and questions Patient Evaluation: Verbalizes understanding Follow Up Plan: Follow up as directed by MD. Supplemental Material Given: None Instructed By Meera Crocker RN, RN. In Department of CARDIOLOGY. documented in this encounter [facility] 10-04-2021 Miscellaneous Notes Patient scheduled for DCC procedure on 10/07/21. Patient denies missing any doses of Xarelto in the past 21 days. Patient given arrival time of 0900 and instructions, stated understanding. Meera Crocker RN, RN ----- Message from Olga Valadez RN sent at 10/03/2021 4:34 PM EDT ----- Regarding: DCC Please schedule patient for DCC. Timeframe: now Date of last H&P: 09/26/2021 Three weeks uninterrupted anticoagulation: Yes, denies any missed doses JOSHUA needed: No Special instructions: None Olga Valadez RN October 03, 2021 4:34 PM documented in this encounter [facility] 10-03-2021 Miscellaneous Notes Patient returned called. Louisa Marshall Returned call, no answer, left message. Olga Valadez RN October 03, 2021 Patient Contact Number: [phone] or [phone] Patient last seen within the last year: Yes 09/26/21 Reason For Call: Follow-up Questions: Patient would like to be Cardioverted. Physician:Dileep Abernathy MD Patient was informed that non-urgent calls may be returned within the next two business days. Yes Louisa Marshall documented in this encounter [facility] 09-26-2021 History of Present illness Narrative Images from the original note were not included. EP STAFF NOTE: Please note: This note has been produced using speech recognition software and may contain errors related to that system including grammar, punctuation, spelling, gender and words and phrases that may be inappropriate Consultation requested by Dr. Chavira for an opinion regarding management of AF and my final recommendations will be communicated back to the requesting physician by way of shared medical record OR letter via fax/US mail. I have reviewed the above information and examined the patient and confirm the above with the following additions/modifications. PE: Vitals: BP 122/72 (BP Site: Right Arm, BP Position: Sitting, BP Cuff Size: Large Adult) Pulse 64 Ht 175.3 cm (5' 9) Wt 91.2 kg (201 lb) SpO2 96% BMI 29.68 kg/m General: Appears well nourished. In no acute distress. Lungs: Unlabored Heart: RRR - in AFL with 3:1 AVB Extremities: No peripheral edema bilaterally. PROBLEM LIST: patient of Dr. Chavira who was last seen on 11/04/2019 by Rea Hernandez CNP. HTN atrial fibrillation/flutter with a CTI ablation in 2007 pulmonary vein isolation in 2010, cardioversion on 11/04/2019. , . Patient has been on a rhythm controlling strategy with flecainide 150 mg twice daily as well as rate control with Lopressor 12.5 mg twice daily CHADS VASc - 2 - HTN and age - anticoagulant therapy with Xarelto 20 mg daily. JOSHUA : - The left ventricle is normal in size. Left ventricular systolic function is normal. EF = 55 5% (visual est.) - The right ventricle is normal in size. Right ventricular systolic function is normal. - The left atrial cavity is dilated. - There is no patent foramen ovale as detected by Doppler and saline contrast. - There is no LA/ LA appendage thrombi visualized. - No significant valvular abnormalities. - Exam was compared with the prior CC echocardiographic exam performed on 01/18/2010. Comparable findings. rate related RBBB Cardiac CT 2010: IMPRESSION: 1. The left atrium receives 4 pulmonary veins. First branch of the right lower pulmonary vein appears severely narrowed at its ostium. Left lower pulmonary vein shows mild wall thickening with minimal luminal narrowing and compression from descending aorta (5 x 17 mm). There is a posterior mediastinal vein which drains into right middle pulmonary vein. The right middle vein is a branch of the right superior pulmonary vein. 2. No left atrial or left atrial appendage thrombus. IMPRESSION / PLAN: 66 y/o with recurrent persistent, symptomatic AF despite prior CTI RFA 2007 and PVI 2010. He has mild LIPV stenosis. Not immediately aware of AF - but more fatigued / SOB when in a persistent event. Can tele in AF by increase in HR on home checks. He has required multiple cardioversion in the past year despite ongoing therapy with high dose Flecainide and BB. DCC 11/04/2019. , . LA was significantly enlarged by CT 2010 Referred to me - VV at that time d/t weather. Reviewed additional rhythm control options - switch to Tikosyn versus redo PVI. R/B reviewed. Wanted to defer a change in management until event rate worsens. Presents for follow up TTE updated : - The left ventricle is normal in size. Left ventricular systolic function is mildly decreased. EF = 50 5% (2D biplane) Grade II left ventricular diastolic dysfunction. - The right ventricle is normal in size. Right ventricular systolic function is normal. - The left atrial cavity is severely dilated. - Mild (1+) MR. - Mild (1+) TR. - Estimated right ventricular systolic pressure is 46 mmHg consistent with mild pulmonary hypertension. Estimated right atrial pressure is 3 mmHg (although IVC not seen). - Exam was compared with the prior echocardiographic exam performed on 06/10/2015 (JOSHUA). Prior EF was 55%. Presents for follow up. In AFL today with a controlled V rate at 75 bpm. Could tell by his VS checks that he developed recurrent AF / AFL 09-12-21. Feels more fatigued in AFL. Remains on high dose Flec, metoprolol and xarelto as prescribed by Dr. Chavira. Reviewed management options - includng switching to rate control versus additional rhythm control management with DCC as needed, versus switch to Tikosyn versus redo PVI and atypical AFL RFA. R/B reviewed. Wants to consider these option further and will call with decision. This note was created with electronic dictation and errors in syntax and meaning may have occurred. Dileep Abernathy MD Pager: [phone] Office: [phone] I personally examined the patient and repeated the newell components of the exam and cardiac history, past medical and surgical history, social and family history. The assessment and plan were formulated and discussed with the patient and family. I spent over 25 minutes (face time) and greater than 50% of this time was spent counseling and/or coordinating the care of the patient with regard the diagnosis and medical regimen Referring Physician: Davdi Woods MD [address] [place] [id number] Dileep Abernathy [address] [facility] [id number] documented in this encounter [facility] 08-26-2021 Miscellaneous Notes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 Practitioner Relationship Specialty Start Date End Date David Woods MD PCP - General Family Practice 02/22/15 No, Referral Referring Cardiology 01/09/18 Dewayne Chavira MD Primary Staff Physician Cardiology 05/28/18 Orthotic Practitioner Relationship Specialty Start Date End Date David Woods MD PCP - General Family Practice 02/22/15 No, Referral Referring Cardiology 01/09/18 Dewayne Chavira MD Primary Staff Physician Cardiology 05/28/18 Orthotic Practitioner Relationship Specialty Start Date End Date David Woods MD PCP - General Family Medicine 02/22/15 No, Referral Referring Cardiology 01/09/18 Dewayne Chavira MD Primary Staff Physician Cardiology 05/28/18 Orthotic Practitioner Relationship Specialty Start Date End Date David Woods MD PCP - General Family Medicine 02/22/15 No, Referral Referring Cardiology 01/09/18 Dewayne Chavira MD Primary Staff Physician Cardiology 05/28/18 Orthotic Practitioner Relationship Specialty Start Date End Date David Woods MD PCP - General Family Medicine 02/22/15 No, Referral Referring Cardiology 01/09/18 Dewayne Chavira MD Primary Staff Physician Cardiology 05/28/18 Orthotic Practitioner Relationship Specialty Start Date End Date David Woods MD PCP - General Family Medicine 02/22/15 No, Referral Referring Cardiology 01/09/18 Dewayne Chavira MD Primary Staff Physician Cardiology 05/28/18 Orthotic Practitioner Relationship Specialty Start Date End Date David Woods MD PCP - General Family Medicine 02/22/15 No, Referral Referring Cardiology 01/09/18 Dewayne Chavira MD Primary Staff Physician Cardiology 05/28/18 Orthotic Practitioner Relationship Specialty Start Date End Date David Woods MD PCP - General Family Medicine 02/22/15 No, Referral Referring Cardiology 01/09/18 Dewayne Chavira MD Primary Staff Physician Cardiology 05/28/18 Orthotic Practitioner Relationship Specialty Start Date End Date David Woods MD PCP - General Family Medicine 02/22/15 No, Referral Referring Cardiology 01/09/18 Dewayne Chavira MD Primary Staff Physician Cardiology 05/28/18 Orthotic Practitioner Relationship Specialty Start Date End Date David Woods MD PCP - General Family Medicine 02/22/15 No, Referral Referring Cardiology 01/09/18 Dewayne Chavira MD Primary Staff Physician Cardiology 05/28/18 Orthotic Practitioner Relationship Specialty Start Date End Date David Woods MD PCP - General Family Medicine 02/22/15 No, Referral Referring Cardiology 01/09/18 Dewayne Chavira MD Primary Staff Physician Cardiology 05/28/18 Orthotic Practitioner Relationship Specialty Start Date End Date David Woods MD PCP - General Family Medicine 02/22/15 No, Referral Referring Cardiology 01/09/18 Dewayne Chavira MD Primary Staff Physician Cardiology 05/28/18 Orthotic Practitioner Relationship Specialty Start Date End Date David Woods MD PCP - General Family Medicine 02/22/15 No, Referral Referring Cardiology 01/09/18 Dewayne Chavira MD Primary Staff Physician Cardiology 05/28/18 Orthotic Practitioner Relationship Specialty Start Date End Date David Woods MD PCP - General Family Medicine 02/22/15 No, Referral Referring Cardiology 01/09/18 Dewayne Chavira MD Primary Staff Physician Cardiology 05/28/18 Orthotic Practitioner Relationship Specialty Start Date End Date David Woods MD PCP - General Family Medicine 02/22/15 No, Referral Referring Cardiology 01/09/18 Dewayne Chavira MD Primary Staff Physician Cardiology 05/28/18 Orthotic Practitioner Relationship Specialty Start Date End Date David Woods MD PCP - General Family Medicine 02/22/15 No, Referral Referring Cardiology 01/09/18 Dewayne Chavira MD Primary Staff Physician Cardiology 05/28/18 Orthotic Practitioner Relationship Specialty Start Date End Date David Woods MD PCP - General Family Medicine 02/22/15 No, Referral Referring Cardiology 01/09/18 Dewayne Chavira MD Primary Staff Physician Cardiology 05/28/18 Orthotic Practitioner Relationship Specialty Start Date End Date Dvaid Woods MD PCP - General Family Medicine 02/22/15 No, Referral Referring Cardiology 01/09/18 Dewayne Chavira MD Primary Staff Physician Cardiology 05/28/18 Orthotic Practitioner Relationship Specialty Start Date End Date David Woods MD PCP - General Family Medicine 02/22/15 No, Referral Referring Cardiology 01/09/18 Dewayne Chavira MD Primary Staff Physician Cardiology 05/28/18 Dileep Abernathy MD [address] [place] [address] Sales Appointment Coordinator Cardiology 05/11/23 Dileep Abernathy MD [address] [place] [address] Primary Staff Physician Cardiology 05/11/23 Orthotic Practitioner Relationship Specialty Start Date End Date David Woods MD PCP - General Family Medicine 02/22/15 No, Referral Referring Cardiology 01/09/18 Dewayne Chavira MD Primary Staff Physician Cardiology 05/28/18 Dileep Abernathy MD [address] [place], [place] [phone] Sales Appointment Coordinator Cardiology 05/11/23 Dileep Abernathy MD [address] [place] [address] Primary Staff Physician Cardiology 05/11/23 Orthotic Practitioner Relationship Specialty Start Date End Date David Woods MD PCP - General Family Medicine 02/22/15 No, Referral Referring Cardiology 01/09/18 Dewayne Chavira MD Primary Staff Physician Cardiology 05/28/18 Dileep Abernathy MD [address] [place] [address] Sales Appointment Coordinator Cardiology 05/11/23 Dileep Abernathy MD [address] [place] [address] Primary Staff Physician Cardiology 05/11/23 Orthotic Practitioner Relationship Specialty Start Date End Date David Woods MD PCP - General Family Medicine 02/22/15 No, Referral Referring Cardiology 01/09/18 Dewayne Chavira MD Primary Staff Physician Cardiology 05/28/18 Dileep Abernathy MD [address] [place], [place] [phone] Sales Appointment Coordinator Cardiology 05/11/23 Dileep Abernathy MD [address] [place], [place] [phone] Primary Staff Physician Cardiology 05/11/23 Orthotic Practitioner Relationship Specialty Start Date End Date David Woods MD PCP - General Family Medicine 02/22/15 No, Referral Referring Cardiology 01/09/18 Dewayne Chavira MD Primary Staff Physician Cardiology 05/28/18 Dileep Abernathy MD [address] [place], [place] [phone] Sales Appointment Coordinator Cardiology 05/11/23 Dileep Abernathy MD [address] [place], [place] [phone] Primary Staff Physician Cardiology 05/11/23 Orthotic Practitioner Relationship Specialty Start Date End Date David Woods MD PCP - General Family Medicine 02/22/15 No, Referral Referring Cardiology 01/09/18 Dewayne Chavira MD Primary Staff Physician Cardiology 05/28/18 Dileep Abernathy MD [address] [place], [place] [phone] Sales Appointment Coordinator Cardiology 05/11/23 Dileep Abernathy MD [address] [place], [place] [phone] Primary Staff Physician Cardiology 05/11/23 Orthotic Practitioner Relationship Specialty Start Date End Date David Woods MD PCP - General Family Medicine 02/22/15 No, Referral Referring Cardiology 01/09/18 Dewayne Chavira MD Primary Staff Physician Cardiology 05/28/18 Dileep Abernathy MD [address] [place], [place] [phone] Sales Appointment Coordinator Cardiology 05/11/23 Dileep Abernathy MD [address] [place], [place] [phone] Primary Staff Physician Cardiology 05/11/23 Orthotic Practitioner Relationship Specialty Start Date End Date David Woods MD PCP - General Family Medicine 02/22/15 No, Referral Referring Cardiology 01/09/18 Dewayne Chavira MD Primary Staff Physician Cardiology 05/28/18 Dileep Abernathy MD [address] [place] [address] Sales Appointment Coordinator Cardiology 05/11/23 Dileep Abernathy MD [address] [place], [place] [phone] Primary Staff Physician Cardiology 05/11/23 Orthotic Practitioner Relationship Specialty Start Date End Date David Woods MD PCP - General Family Medicine 02/22/15 No, Referral Referring Cardiology 01/09/18 Dewayne Chavira MD Primary Staff Physician Cardiology 05/28/18 Dileep Abernathy MD [address] [place], [place] [phone] Sales Appointment Coordinator Cardiology 05/11/23 Dileep Abernathy MD [address] [place], [place] [phone] Primary Staff Physician Cardiology 05/11/23 Orthotic Practitioner Relationship Specialty Start Date End Date David Woods MD PCP - General Family Medicine 02/22/15 No, Referral Referring Cardiology 01/09/18 Dewayne Chavira MD Primary Staff Physician Cardiology 05/28/18 Dileep Abernathy MD [address] [place] [address] Sales Appointment Coordinator Cardiology 05/11/23 Dileep Abernathy MD [address] [place], [place] [phone] Primary Staff Physician Cardiology 05/11/23 Orthotic Practitioner Relationship Specialty Start Date End Date David Woods MD PCP - General Family Medicine 02/22/15 No, Referral Referring Cardiology 01/09/18 Dewayne Chavira MD Primary Staff Physician Cardiology 05/28/18 Dileep Abernathy MD [address] [place] [address] Sales Appointment Coordinator Cardiology 05/11/23 Dileep Abernathy MD [address] [place] [address] Primary Staff Physician Cardiology 05/11/23 Orthotic Practitioner Relationship Specialty Start Date End Date David Woods MD PCP - General Family Medicine 02/22/15 No, Referral Referring Cardiology 01/09/18 Dewayne Chavira MD Primary Staff Physician Cardiology 05/28/18 Dileep Abernathy MD [address] [place] [address] Sales Appointment Coordinator Cardiology 05/11/23 Dileep Abernathy MD [address] [place] [address] Primary Staff Physician Cardiology 05/11/23 Orthotic Practitioner Relationship Specialty Start Date End Date David Woods MD PCP - General Family Medicine 02/22/15 No, Referral Referring Cardiology 01/09/18 Dewayne Chavira MD Primary Staff Physician Cardiology 05/28/18 Dileep Abernathy MD [address] [place], [place] [phone] Sales Appointment Coordinator Cardiology 05/11/23 Dileep Abernathy MD [address] [place], [place] [phone] Primary Staff Physician Cardiology 05/11/23 Orthotic Practitioner Relationship Specialty Start Date End Date David Woods MD PCP - General Family Medicine 02/22/15 No, Referral Referring Cardiology 01/09/18 Dewayne Chavira MD Primary Staff Physician Cardiology 05/28/18 Dileep Abernathy MD [address] [place], [place] [phone] Sales Appointment Coordinator Cardiology 05/11/23 Dileep Abernathy MD [address] [place], [place] [phone] Primary Staff Physician Cardiology 05/11/23 Orthotic Practitioner Relationship Specialty Start Date End Date David Woods MD PCP - General Family Medicine 02/22/15 No, Referral Referring Cardiology 01/09/18 Dewayne Chavira MD Primary Staff Physician Cardiology 05/28/18 Dileep Abernathy MD [address] [place], [place] [phone] Sales Appointment Coordinator Cardiology 05/11/23 Dileep Abernathy MD [address] [place] [address] Primary Staff Physician Cardiology 05/11/23 (unrecognized sect ion and content) No Status Records FoundNo Status Records FoundNo Status Records Found INFORMATION SOURCE (unrecogn ized section and content) DATE CREATED AUTHOR 01/29/2023 [facility] DATE CREATED AUTHOR AUTHOR'S ORGANIZ ATION 09/27/2023 [facility] DATE CREATED AUTHOR AUTHOR'S ORGANIZ ATION 10/13/2024 [facility] FOR RECORDS PERTAINING TO PATIENTS WHO ARE OR HAVE BEEN ENROLLED IN A CHEMICAL DEPENDENCY/SUBSTANCEABUSE PROGRAM, SOME INFORMATION MAY BE OMITTED. This clinical summary was aggregated from multiple sources. Caution should be exercised in using it in the provision of clinical care. This summary normalizes information from multiple sources, and as a consequence, information in this document may materially change the coding, format and clinical context of patient data. In addition, data may be omitted in some cases. CLINICAL DECISIONS SHOULD BE BASED ON THE PRIMARY CLINICAL RECORDS. [employer] [facility]. provides no warranty or guarantee of the accuracy or completeness of information in this document.
[2024-10-14 11:53] LABS: Anion Gap 10 (5-15); BUN 22 mg/dL (4-19); BUN/Creat Ratio 24.1 RATIO (10-20); Calcium,Total 9.4 mg/dL (7.6-11.0); Carbon Dioxide 23.7 mmol/L (21.0-32.0); Chloride 107 mmol/L (98-108); Cholesterol 150 mg/dL (<=200); Glucose 93 mg/dL (70-99); Low Density Lipoprotein Calc. 86 mg/dL; PSA,Total - Annual Screen 0.99 ng/mL (0.02-4.00); Potassium 4.1 mmol/L (3.3-5.1); Triglycerides 93 mg/dL; Very Low Density Lipoprotein 19 mg/dL (5-40); cholesterol:hdl ratio screen 3.32
== END | disposition home or self-care (01) ==
LOC: MFPLAB 08:21
PROVIDERS: PCP Family Medicine; Referring Provider Family Medicine; Visit Provider Family Medicine
DX: Z00.00 Encounter for general adult medical examination without abnormal findings (principal); Z12.5 Encounter for screening for malignant neoplasm of prostate
CPT/HCPCS: 36415; 80048; 80061; 84153; G0103